=== PATIENT | male | born 1935 | race Caucasian/White ===

== ENCOUNTER 2017-01-02 11:33 | Inpatient (IN) | payer OTHER, MEDICARE ==
[2017-01-02] VITALS (13 sets, daily range): BP systolic 127–200; BP diastolic 74–104; PULSE 65–96; RESP 16–18; TEMP 97.9–98.6; O2SAT 93–99
[~2017-01-02 11:33] MED LIST: 1-ME1LIQ PO; ASPI325T PO; ATEN100T7 PO; KCL10C PO; NITR0.4S SL; PLAV75TA PO; PROT40TA PO; ROSU40 PO
--- NOTE | 2017-01-02 11:54 | PD ---
HPI Chief Complaint: Chest Pain Time Seen by Provider: 11:45 Travel History International Travel<30 days: No Contact w/Intl Traveler<30days: No Traveled to known affect area: No History of Present Illness HPI 81-year-old male complaining of chest pain or shortness of breath. Patient states that he has intermittent chest pain or shortness breath for the past 3 weeks. Patient states that the chest pain or shortness breath occasionally associated with exertion. Patient states that the chest pain usually got complete relief with nitroglycerin sublingually. Last chest pain episode was last night. Patient has history of CAD status post 2 stents placement. Last stent placement was [address] Mena. Patient has history of severe aortic stenosis. Patient status post aortic valve replacement last year at [facility]. Patient is on Plavix and aspirin 325 mg at night. Patient has not taken Plavix or aspirin today. Patient has history hypertension, hyperlipidemia. Patient denies history diabetes. Patient quit smoking years ago. Patient has family history of heart disease. Patient denies any chest pain now. PFSH Past Medical History Arthritis: Yes Cancer: Yes (PROSTATE) Cardiovascular Problems: Yes High Cholesterol: Yes Chemotherapy: No Chest Pain: Yes Congestive Heart Failure: Yes Diabetes: No Diminished Hearing: Yes (BILAT HEARING AIDS) Endocrine: No GERD: Yes Genitourinary: No Hypertension: Yes Immune Disorder: No Musculoskeletal: Yes Neurologic: No Psychiatric: No Respiratory: Yes (SLEEP APNEA) Radiation Therapy: No ?: Not Past Surgical History Abdominal Surgery: Yes (HERNIA REPAIR X 2, APPENDECTOMY) Appendectomy: Yes (194) Body Medical Devices: PIN IN LEFT THUMB Cardiac Surgery: Yes (CARDIAC STENTS) Coronary Artery Bypass Graft: Yes (3 VESSEL AUGUST 2007) Genitourinary Surgery: Yes (PROSTATE 1998) Prostatectomy: Yes (1998) Social History Alcohol Use: Yes (2 GLASSES WINE DAILY) Tobacco Use: No (QUIT 1973) Substance Use: No Allergies-Medications (Allergen,Severity, Reaction): Coded Allergies: Enalapril (Verified Allergy, Severe, 01/02/17) Niacin (Verified Allergy, Severe, 01/02/17) Sulfa (Verified Allergy, Severe, "FLUSHING", 01/02/17) Reported Meds & Prescriptions Reported Meds & Active Scripts Active Reported Glucosamine-Chondroitin 500-400 Mg Tab 1 Tab PO BID Potassium Chloride ER (Potassium Chloride) 10 Meq Cap 10 Meq PO DIRECTED Tylenol (Acetaminophen) 325 Mg Tab 500 Mg PO TID PRN Rosuvastatin (Rosuvastatin Calcium) 40 Mg Tab 40 Mg PO DAILY Prednisolone Liq (Prednisolone) 15 Mg/5 Ml Soln 2.5 Mg PO BID Pantoprazole (Pantoprazole Sodium) 40 Mg Tab 40 Mg PO DAILY Fish Oil 1200 mg ([place]-3 Fatty Acids) 1 Cap Cap 1 Tab PO DAILY Clopidogrel (Clopidogrel Bisulfate) 75 Mg Tab 75 Mg PO DAILY Atenolol 50 Mg Tab 50 Mg PO DAILY Aspirin 325 Mg Tab 325 Mg PO HS Amlodipine (Amlodipine Besylate) 10 Mg Tab 10 Mg PO DAILY Review of Systems General / Constitutional: No: Fever Eyes: No: Visual changes HENT: No: Headaches Cardiovascular: Positive: Chest Pain or Discomfort Respiratory: No: Shortness of Breath Gastrointestinal: No: Abdominal Pain Genitourinary: No: Dysuria Musculoskeletal: No: Pain Skin: No Rash Neurologic: No: Weakness Psychiatric: No: Depression Endocrine: No: Polydipsia Hematologic/Lymphatic: No: Easy Bruising Physical Exam Narrative GENERAL: Well-nourished, well-developed patient. SKIN: Focused skin assessment warm/dry. HEAD: Normocephalic. EYES: No scleral icterus. No injection or drainage. NECK: Supple, trachea midline. No JVD or lymphadenopathy. CARDIOVASCULAR: Regular rate and rhythm without murmurs, gallops, or rubs. RESPIRATORY: Breath sounds equal bilaterally. No accessory muscle use. GASTROINTESTINAL: Abdomen soft, non-tender, nondistended. MUSCULOSKELETAL: No cyanosis, or edema. BACK: Nontender without obvious deformity. No CVA tenderness. Neurologic exam normal. Data Data Last Documented VS Vital Signs Date Time Temp Pulse Resp B/P Pulse Ox O2 Delivery O2 Flow Rate FiO2 01/02/17 13:34 70 18 154/78 97 Room Air 01/02/17 11:45 98.6 Orders Electrocardiogram (01/02/17 11:46) Complete Blood Count With Diff (01/02/17 11:46) Comprehensive Metabolic Panel (01/02/17 11:46) Creatine Kinase (Cpk) (01/02/17 11:46) Troponin I (01/02/17 11:46) B-Type Natriuretic Peptide (01/02/17 11:46) Prothrombin Time / Inr (Pt) (01/02/17 11:46) Act Partial Throm Time (Ptt) (01/02/17 11:46) Chest, Single Ap (01/02/17 11:46) Iv Access Insert/Monitor (01/02/17 11:46) Ecg Monitoring (01/02/17 11:46) Oximetry (01/02/17 11:46) Sodium Chlor 0.9% 1000 Ml Inj (Ns 1000 M (01/02/17 12:00) Labs Laboratory Tests Test 01/02/17 11:50 White Blood Count 8.0 TH/MM3 Red Blood Count 4.86 MIL/MM3 Hemoglobin 14.2 GM/DL Hematocrit 43.4 % Mean Corpuscular Volume 89.2 FL Mean Corpuscular Hemoglobin 29.3 PG Mean Corpuscular Hemoglobin 32.8 % Concent Red Cell Distribution Width 14.6 % Platelet Count 180 TH/MM3 Mean Platelet Volume 7.5 FL Neutrophils (%) (Auto) 73.2 % Lymphocytes (%) (Auto) 18.9 % Monocytes (%) (Auto) 7.0 % Eosinophils (%) (Auto) 0.4 % Basophils (%) (Auto) 0.5 % Neutrophils # (Auto) 5.9 TH/MM3 Lymphocytes # (Auto) 1.5 TH/MM3 Monocytes # (Auto) 0.6 TH/MM3 Eosinophils # (Auto) 0.0 TH/MM3 Basophils # (Auto) 0.0 TH/MM3 CBC Comment DIFF FINAL Differential Comment Prothrombin Time 11.2 SEC Prothromb Time International 1.0 RATIO Ratio Activated Partial 26.7 SEC Thromboplast Time Sodium Level 139 MEQ/L Potassium Level 4.4 MEQ/L Chloride Level 104 MEQ/L Carbon Dioxide Level 27.6 MEQ/L Anion Gap 7 MEQ/L Blood Urea Nitrogen 26 MG/DL Creatinine 1.20 MG/DL Estimat Glomerular Filtration 58 ML/MIN Rate Random Glucose 99 MG/DL Calcium Level 9.1 MG/DL Total Bilirubin 0.6 MG/DL Aspartate Amino Transf 15 U/L (AST/SGOT) Alanine Aminotransferase 30 U/L (ALT/SGPT) Alkaline Phosphatase 53 U/L Total Creatine Kinase 32 U/L Troponin I 0.03 NG/ML B-Type Natriuretic Peptide 1368 PG/ML Total Protein 8.2 GM/DL Albumin 4.1 GM/DL MDM Medical Decision Making Medical Screen Exam Complete: Yes Emergency Medical Condition: Yes Interpretation(s) EKG shows sinus rhythm with sinus arrhythmia. Left bundle-branch block. The left bundle-branch block compared to EKG done on February 04, 2015 is new. Chest X-Ray 01/02/17 1146 Signed Impressions: Service Date/Time: , January 02, 2017 11:50 - CONCLUSION: No acute cardiopulmonary abnormality is identified. There is mild atelectasis at the lung bases. Jona Flores MD 1319 p.m. CBC within normal limit. CMP within normal limit. BUN 26. GFR 58. Cardiac enzymes are normal. BNP 1368. Differential Diagnosis Differential diagnosis including angina, MD, PE, pneumothorax. Narrative Course 81-year-old male with intermittent chest pain and shortness of breath. History of CAD status post stents placement and aortic valve replacement. Patient's asymptomatic for CHF although BNP is elevated. I spoke with Dr. Menon, mortgage originator on-call. Advised [facility] admission, continue with Plavix and aspirin and cardiology consultation. Patient has new left bundle-branch block on EKG compared to February 04, 2015. Diagnosis Primary Impression: Chest pain Qualified Code: R07.9 - Chest pain, unspecified type Additional Impression: Dyspnea Qualified Code: R06.02 - Shortness of breath Wm Thompson MD Jan 02, 2017 11:54
[2017-01-02 11:58] LABS: AUTOMATED NEUTROPHIL # 5.9 TH/MM3 (1.8-7.7); BASOPHIL % 0.5 % (0.0-2.0); EOSINOPHIL % 0.4 % (0.0-4.0); HEMATOCRIT 43.4 % (39.0-51.0); HEMO FLAGS DIFF FINAL; LYMPH % 18.9 % (9.0-44.0); LYMPHOCYTE # 1.5 TH/MM3 (1.0-4.8); MEAN CELL VOLUME 89.2 FL (80.0-100.0); MEAN CORPUSCULAR HEMOGLOBIN 29.3 PG (27.0-34.0); MEAN CORPUSCULAR HGB CONC 32.8 % (32.0-36.0); NEUT % 73.2 % (16.0-70.0); PLATELET COUNT 180 TH/MM3 (150-450); RED BLOOD COUNT 4.86 MIL/MM3 (4.50-5.90); RED CELL DISTRIBUTION WIDTH 14.6 % (11.6-17.2)
[2017-01-02] MEDS ORDERED: FISH1200 PO (12:00)
[2017-01-02] MEDS ORDERED: ASPI325T PO (12:00)
[2017-01-02] MEDS ORDERED: AMLO10TA2 PO (12:00)
[2017-01-02] MEDS ORDERED: CLOP75TA PO (12:00)
[2017-01-02] MEDS ORDERED: ATEN50TA PO (12:00)
[2017-01-02] MEDS ORDERED: PANT40TA3 PO (12:00)
[2017-01-02] MEDS ORDERED: SODIUM CHLOR 0.9% 1000 ML INJ 1,000 ML IV SCH (12:00)
[2017-01-02 12:12] LABS: CHLORIDE 104 MEQ/L (98-107); POTASSIUM 4.4 MEQ/L (3.5-5.1); SODIUM (NA) 139 MEQ/L (136-145)
[2017-01-02 12:16] LABS: ANION GAP 7 MEQ/L (5-15); APTT (PATIENT) 26.7 SEC (24.3-30.1); BICARBONATE 27.6 MEQ/L (21.0-32.0); BLOOD UREA NITROGEN 26 MG/DL (7-18); PROTHROMBIN TIME - PATIENT 11.2 SEC (9.8-11.6)
[2017-01-02] MEDS ORDERED: TYLE325T PO (12:16)
[2017-01-02] MEDS ORDERED: ROSU1TAB10 PO (12:16)
[2017-01-02] MEDS ORDERED: PRED15UDC PO (12:16)
[2017-01-02] MEDS ORDERED: GLUC500T4 PO (12:16)
[2017-01-02] MEDS ORDERED: POTA10CA PO (12:16)
[2017-01-02 12:19] LABS: ALT (GPT) 30 U/L (12-78); AST (GOT) 15 U/L (15-37); GLOMERULAR FILTRATION RATE 58 ML/MIN (>89)
[2017-01-02 12:21] LABS: TOTAL BILIRUBIN ADULT 0.6 MG/DL (0.2-1.0)
[2017-01-02 12:22] LABS: ALKALINE PHOSPHATASE 53 U/L (45-117); CREATINE KINASE 32 U/L (39-308)
--- NOTE | 2017-01-02 12:24 | RADRPT ---
EXAM DATE/TIME: 01/02/2017 11:50 [facility] COMPARISON: CHEST SINGLE AP, September 20, 2014, 10:22. INDICATIONS : Chest pain, short of breath MEDICAL HISTORY : Cardiovascular disease. SURGICAL HISTORY : Coronary artery stent. median sternotomy ENCOUNTER: Initial ACUITY: 1 day PAIN SCORE: 1/10 LOCATION: Bilateral chest FINDINGS: Portable AP view of the chest demonstrates a normal-sized cardiac silhouette with calcification of th e aorta this patient post median sternotomy and CABG. Lungs are underinflated with atelectasis at the bases. No effusion, consolidation, or pneumothorax is visualized. Bones demonstrate no acute finding . CONCLUSION: No acute cardiopulmonary abnormality is identified. There is mild atelectasis at the lung bases. Jona Flores MD on January 02, 2017 at 12:15 Board Certified Radiologist. This report was verified electronically.
--- NOTE | 2017-01-02 14:20 | HHI.HP ---
[facility] Drea Bowman Do, MD Admission Diagnosis chest pain. Dyspnea. Diagnoses: (1) Unstable angina Diagnosis: Principal (2) Dyspnea Diagnosis: Principal (3) Elevated brain natriuretic peptide (BNP) level Diagnosis: Principal (4) (aortic stenosis) Diagnosis: Secondary (5) Coronary artery disease Diagnosis: Secondary Chief Complaint: Chest pain, shortness of breath Travel History International Travel<30 Days: No Contact w/Intl Traveler <30 Da: No Traveled to Known Affected Are: No History of Present Illness Written by Duran Weber, acting as scribe for Dr. Alberto on 01/02/17 at 15:34. 81 year-old male with known history of hypertension, severe coronary artery disease, history of severe aortic stenosis status post aortic valve replacement, obstructive sleep apnea who presented to hospital because of chest pain, shortness of breath. Patient indicates that her last 2 weeks he has been having episodes of chest discomfort located in the left side of his chest radiating to his left arm. The discomfort can happen when he is exerting himself and or at rest, lying down, while he is asleep. Pain is severe and he takes nitroglycerin with complete resolution of his pain. Patient does have a rather significant history of coronary artery disease with coronary bypass surgery, multiple cardiac catheterizations with stenting of the left main, circumflex. Patient's radiography technician Dr. Mena is out of town. The indicates that they called the radiography technician office a week ago and was told to go to the hospital for evaluation, however the patient did not want to go at that time. However because the patient's pain has not improved and he has been getting more short of breath whenever he exerts himself he decided come to the hospital for evaluation. Patient indicates that he does have obstructive sleep apnea however he does not wear his mask because it is uncomfortable. He thinks that this could have something do with his symptoms that he is experiencing. Patient indicates that he is having left-sided chest pain radiating to his left arm and shoulder, denies any nausea, vomiting, diaphoresis. Does have associated shortness of breath and dyspnea. Denies any lightheadedness or dizziness. Review of Systems Constitutional: DENIES: Diaphoretic episodes, Fatigue, Fever, Weight gain, Weight loss, Chills, Dizziness, Change in appetite, Night Sweats Eyes: DENIES: Blurred vision, Diplopia, Eye inflammation, Eye pain, Vision loss , Double Vision Ears, nose, mouth, throat: DENIES: Nasal discharge, Throat pain, Ear Pain, Running Nose, Sinus Pain Respiratory: COMPLAINS OF: Shortness of breath, DENIES: Apneas, Cough, Snoring , Wheezing, Hemoptysis, Sputum production Cardiovascular: COMPLAINS OF: Chest pain, Dyspnea on Exertion, DENIES: Palpitations, Syncope, Lower Extremity Edema, Orthopnea Gastrointestinal: DENIES: Abdominal pain, Black stools, Bloody stools, Constipation, Diarrhea, Nausea, Vomiting, Difficulty Swallowing, Anorexia Neurologic: DENIES: Abnormal gait, Headache, Localized weakness, Paresthesias, Seizures, Speech Problems, Tremor, Poor Balance Past Family Social History Past Medical History Hypertension Hyperlipidemia Coronary artery disease History of Myocardial infarction severe aortic stenosis History of tobacco use History of prostate cancer Obstructive sleep apnea Past Surgical History Cardiac cath with stenting of left main and circumflex Coronary bypass surgery Bilateral inguinal hernia repair Appendectomy Prostatectomy Cataract surgery Aortic valve replacement, bovine Reported Medications Reported Meds & Active Scripts Active Reported Glucosamine-Chondroitin 500-400 Mg Tab 1 Tab PO BID Potassium Chloride ER (Potassium Chloride) 10 Meq Cap 10 Meq PO DIRECTED Tylenol (Acetaminophen) 325 Mg Tab 500 Mg PO TID PRN Rosuvastatin (Rosuvastatin Calcium) 40 Mg Tab 40 Mg PO DAILY Prednisolone Liq (Prednisolone) 15 Mg/5 Ml Soln 2.5 Mg PO BID Pantoprazole (Pantoprazole Sodium) 40 Mg Tab 40 Mg PO DAILY Fish Oil 1200 mg ([place]-3 Fatty Acids) 1 Cap Cap 1 Tab PO DAILY Clopidogrel (Clopidogrel Bisulfate) 75 Mg Tab 75 Mg PO DAILY Atenolol 50 Mg Tab 50 Mg PO DAILY Aspirin 325 Mg Tab 325 Mg PO HS Amlodipine (Amlodipine Besylate) 10 Mg Tab 10 Mg PO DAILY Allergies: Coded Allergies: Enalapril (Verified Allergy, Severe, 01/02/17) Niacin (Verified Allergy, Severe, 01/02/17) Sulfa (Verified Allergy, Severe, "FLUSHING", 01/02/17) Family History Reviewed is significant for heart disease, cancer, stroke Social History Patient quit smoking cigarettes approximately 30 years ago, prior to that he smoked 2 pack of cigarettes a day since he was a teenager. He does drink 2 glasses of wine daily. Denies any illicit drugs Physical Exam Vital Signs Vital Signs Date Time Temp Pulse Resp B/P Pulse Ox O2 Delivery O2 Flow Rate FiO2 01/02/17 13:34 70 18 154/78 97 Room Air 01/02/17 13:06 70 99 Room Air 01/02/17 12:25 65 16 154/78 93 Room Air 01/02/17 11:56 72 18 164/84 99 Room Air 01/02/17 11:47 72 18 99 Room Air 01/02/17 11:45 98.6 72 18 200/104 99 Physical Exam GENERAL: Well-developed, well-nourished, in no acute distress. alert and orientated HEENT: Head is normocephalic without any lesions or masses noted. Facial features are symmetric. Eyes: Pupils equal round reactive to light. Extraocular muscles are intact. Conjunctivae were clear. Oropharyngeal: Pharynx without any erythema edema. Tongue is midline without deviation. Buccal mucosa is moist without any masses or lesions NECK: Supple without any masses. Trachea midline no deviation. No JVD, no bruits are appreciated CARDIAC: Regular rhythm, regular rate. S1/S2 are heard. 2/6 midsystolic murmur , no gallops or rubs. LUNGS: Clear to auscultation bilaterally. No wheeze, rhonchi or rales. No use of accessory muscles on inspiration or expiration. ABDOMEN: Soft, nontender. Nondistended. Bowel sounds heard in all 4 quadrants. No organomegaly or masses. Negative rebound, negative guarding EXTREMITIES: No edema, pulses are equal bilaterally. No cyanosis or clubbing NEUROLOGY: Mood and affect appear appropriate. Cranial nerves II through XII grossly intact. Muscle strength 5/5 in upper and lower extremities bilaterally. Deep tendon reflexes are 2+ in upper and lower extremities bilaterally. Laboratory Laboratory Tests Test 01/02/17 11:50 White Blood Count 8.0 Red Blood Count 4.86 Hemoglobin 14.2 Hematocrit 43.4 Mean Corpuscular Volume 89.2 Mean Corpuscular Hemoglobin 29.3 Mean Corpuscular Hemoglobin 32.8 Concent Red Cell Distribution Width 14.6 Platelet Count 180 Mean Platelet Volume 7.5 Neutrophils (%) (Auto) 73.2 Lymphocytes (%) (Auto) 18.9 Monocytes (%) (Auto) 7.0 Eosinophils (%) (Auto) 0.4 Basophils (%) (Auto) 0.5 Neutrophils # (Auto) 5.9 Lymphocytes # (Auto) 1.5 Monocytes # (Auto) 0.6 Eosinophils # (Auto) 0.0 Basophils # (Auto) 0.0 CBC Comment DIFF FINAL Differential Comment Prothrombin Time 11.2 Prothromb Time International 1.0 Ratio Activated Partial 26.7 Thromboplast Time Sodium Level 139 Potassium Level 4.4 Chloride Level 104 Carbon Dioxide Level 27.6 Anion Gap 7 Blood Urea Nitrogen 26 Creatinine 1.20 Estimat Glomerular Filtration 58 Rate Random Glucose 99 Calcium Level 9.1 Total Bilirubin 0.6 Aspartate Amino Transf 15 (AST/SGOT) Alanine Aminotransferase 30 (ALT/SGPT) Alkaline Phosphatase 53 Total Creatine Kinase 32 Troponin I 0.03 B-Type Natriuretic Peptide 1368 Total Protein 8.2 Albumin 4.1 Result Diagram: 01/02/17 1150 01/02/17 1150 Imaging Last Impressions Chest X-Ray 01/02/17 1146 Signed Impressions: Service Date/Time: December 11:50 - CONCLUSION: No acute cardiopulmonary abnormality is identified. There is mild atelectasis at the lung bases. Jona Flores MD Assessment and Plan Problem List: (1) Unstable angina ICD Code: I20.0 Status: Acute Plan: Patient with significant risk factors include severe coronary artery disease, age, male, hypertension, hyperlipidemia, Continue aspirin, beta razia, Norvasc, Plavix, statin. Start Nitropaste Consult radiography technician for recommendations and possible cardiac catheterization Discussed with radiography technician who indicated patient to be anticoagulated with heparin (2) Elevated brain natriuretic peptide (BNP) level ICD Code: R79.89 Status: Acute Plan: Could be secondary to aortic stenosis, however patient does have dyspnea on exertion, however lungs are clear, no lower extremity edema, chest x-rays without any signs of congestion Fluid restriction Strict input and output (3) Hypertension ICD Code: I10 Status: Chronic Plan: Blood pressure accelerated on presentation Resume home medications Clonidine/Vasotec as needed (4) Hyperlipidemia ICD Code: E78.5 Status: Chronic Plan: Resume statin Check lipid panel Assessment and Plan DVT prevention Sequential compression devices Heparin This note was transcribed by dari Weber. I, Dr. Jl Lloyd personally performed the history, physical exam, and medical decision making; and confirmed the accuracy of the information in the transcribed note. Authenticated by Dr. Jl Lloyd on 01/02/17 at 16:19. Problem Qualifiers (1) Dyspnea: Qualified Code: R06.02 - Shortness of breath (2) Coronary artery disease: Qualified Code: I25.119 - Coronary artery disease with angina pectoris, unspecified vessel or lesion type, unspecified whether [place] or transplanted heart Duran Weber Jan 02, 2017 14:20 Jl Mcclain MD Jan 02, 2017 16:19
[2017-01-02] MEDS ORDERED: ALPRAZolam 0.25 MG TAB PO PRN (16:15)
[2017-01-02] MEDS ORDERED: ONDANSETRON HCL 4 MG/2 ML VIAL IV PRN (16:15)
[2017-01-02] MEDS ORDERED: ENOXAPARIN SODIUM 40 MG/0.4 ML SYRINGE SQ SCH (16:15)
[2017-01-02] MEDS ORDERED: MORPHINE SULFATE 8 MG/ML INJ IV PUSH PRN (16:15)
[2017-01-02] MEDS ORDERED: SODIUM CHLORIDE 0.9% FLUSH 10 ML FLUSH IV FLUSH PRN (16:15)
[2017-01-02] MEDS ORDERED: ENALAPRILAT 1.25 MG/ML VIAL IV PUSH PRN (16:45)
[2017-01-02] MEDS ORDERED: cloNIDine HCL 0.1 MG TAB PO PRN (16:45)
[2017-01-02] MEDS ORDERED: HEPARIN SODIUM - IV 10,000 UNITS/10 ML VIAL IV ONE (16:45)
[2017-01-02] MEDS ORDERED: HEPARIN-D5W INJ 250 ML IV SCH (16:45)
[2017-01-02 17:44] LABS: HEMATOCRIT 42.3 % (39.0-51.0); MEAN CORPUSCULAR HEMOGLOBIN 29.2 PG (27.0-34.0); MEAN CORPUSCULAR HGB CONC 32.5 % (32.0-36.0); PLATELET COUNT 161 TH/MM3 (150-450); RED CELL DISTRIBUTION WIDTH 14.9 % (11.6-17.2); REVIEW FLAG FINAL; WHITE BLOOD COUNT 7.9 TH/MM3 (4.0-11.0)
--- NOTE | 2017-01-02 19:00 | EKG ---
Date Performed: 01/02/2017 Time Performed: 11:39:13 PTAGE: 81 years EKG: Sinus rhythm WITH SINUS ARRHYTHMIA LEFT BUNDLE BRANCH BLOCK Compared to previous tracing, the patient has develop ed complete Right bundle branch block ABNORMAL ECG PREVIOUS TRACING : 02/04/2015 05.57 DOCTOR: Stephanie Nathan Interpretating Date/Time 01/02/2017 18:59:37
[2017-01-02] MEDS ORDERED: ACETAMINOPHEN 500 MG CPLT PO ONE (20:30)
[2017-01-02] MEDS: ASPIRIN 325 MG TAB PO SCH (21:15)
[2017-01-02] MEDS: SODIUM CHLORIDE 0.9% FLUSH 10 ML FLUSH IV FLUSH SCH (21:15)
[2017-01-02] MEDS ORDERED: HEPARIN SODIUM - IV 10,000 UNITS/10 ML VIAL IV PRN ×2 (22:45)
[2017-01-02 23:36] LABS: APTT (PATIENT) 41.4 SEC (24.3-30.1)
[2017-01-02 23:58] LABS: HDL CHOLESTEROL 35.3 MG/DL (40.0-60.0)
[2017-01-03] VITALS (27 sets, daily range): BP systolic 115–174; BP diastolic 65–81; PULSE 57–82; RESP 16–20; TEMP 98–98.8; O2SAT 93–96
[2017-01-03] MEDS: CLOPIDOGREL 75 MG TAB PO SCH (08:39)
[2017-01-03] MEDS: ATENOLOL 50 MG TAB PO SCH (08:39)
[2017-01-03] MEDS: PANTOPRAZOLE SOD 40 MG DELAYED RELEASE TAB PO SCH (08:39)
[2017-01-03] MEDS: ATORVASTATIN 80 MG TAB PO SCH (08:40)
[2017-01-03] MEDS: NITROGLYCERIN 2% OINT 1 GM PACKET TOP SCH (08:40)
[2017-01-03] MEDS: SODIUM CHLORIDE 0.9% FLUSH 10 ML FLUSH IV FLUSH SCH ×2 (08:40→22:10)
[2017-01-03] MEDS: ACETAMINOPHEN 325 MG TAB PO PRN ×2 (08:42→17:25)
[2017-01-03] MEDS ORDERED: HEPARIN-NS/PF INJ 500 ML ONE ×2 (11:47→12:51)
[2017-01-03] MEDS ORDERED: VERAPAMIL HCL 5 MG/2 ML VIAL ONE (11:52)
[2017-01-03] MEDS ORDERED: MIDAZOLAM HCL 2 MG/2 ML VIAL ONE (11:52)
[2017-01-03] MEDS ORDERED: HEPARIN SODIUM - IV 10,000 UNITS/10 ML VIAL ONE (11:52)
[2017-01-03] MEDS ORDERED: IOHEXOL 350 MG/ML 50 ML BTL (for Cath Lab) OTHER ONE (12:18)
[2017-01-03] MEDS ORDERED: IOHEXOL 350 MG/ML 100 ML BTL (for Cath Lab) OTHER ONE (12:18)
--- NOTE | 2017-01-03 12:36 | HHI.PR ---
Subjective Remarks Follow-up unstable angina 01/03/17-patient seen and examined ; he has just returned from [facility] without any stent placement. Case discussed with Dr Mike, Cardiology Objective Vitals Vital Signs Date Time Temp Pulse Resp B/P Pulse Ox O2 Delivery O2 Flow Rate FiO2 01/03/17 11:01 18 01/03/17 11:00 57 01/03/17 10:00 62 01/03/17 09:55 96 01/03/17 09:00 76 01/03/17 08:00 72 01/03/17 08:00 98.5 73 20 174/81 96 01/03/17 07:00 77 01/03/17 06:00 81 01/03/17 05:00 72 01/03/17 04:00 81 01/03/17 03:20 98.0 67 16 138/76 94 01/03/17 03:00 76 01/03/17 02:00 75 01/03/17 01:00 71 01/03/17 00:00 82 01/02/17 23:30 97.9 73 16 127/74 93 01/02/17 23:00 75 01/02/17 22:00 68 01/02/17 21:00 74 01/02/17 20:00 78 01/02/17 19:40 98.0 75 16 155/86 94 01/02/17 19:00 80 01/02/17 17:16 98.4 96 18 165/90 99 01/02/17 15:36 70 01/02/17 15:35 70 18 174/83 97 Room Air 01/02/17 13:34 70 18 154/78 97 Room Air 01/02/17 13:06 70 99 Room Air I/O 01/02/17 01/02/17 01/02/17 01/03/17 01/03/17 01/03/17 07:00 15:00 23:00 07:00 15:00 23:00 Intake Total 100 ml 348 ml Output Total 300 ml 1400 ml Balance -200 ml -1052 ml Intake Oral 100 ml 240 ml IV Total 108 ml Output Urine Total 300 ml 1400 ml # Voids 1 1 # Bowel Movements 0 Result Diagram: 01/02/17 1648 01/02/17 1150 Imaging Last Impressions Chest X-Ray 01/02/17 1146 Signed Impressions: Service Date/Time: December 11:50 - CONCLUSION: No acute cardiopulmonary abnormality is identified. There is mild atelectasis at the lung bases. Jona Flores MD Objective Remarks GENERAL: NAD SKIN: Warm and dry. HEAD: Normocephalic. EYES: No scleral icterus. No injection or drainage. NECK: Supple, trachea midline. No JVD or lymphadenopathy. CARDIOVASCULAR: Regular rate and rhythm without murmurs, gallops, or rubs. RESPIRATORY: Breath sounds equal bilaterally. No accessory muscle use. GASTROINTESTINAL: Abdomen soft, non-tender, nondistended. MUSCULOSKELETAL: No cyanosis, or edema. BACK: Nontender without obvious deformity. No CVA tenderness. A/P Problem List: (1) Unstable angina ICD Code: I20.0 Status: Acute (2) Elevated brain natriuretic peptide (BNP) level ICD Code: R79.89 Status: Acute (3) Hypertension ICD Code: I10 Status: Chronic (4) Hyperlipidemia ICD Code: E78.5 Status: Chronic Assessment and Plan 81-year-old man with Unstable angina Appreciate input from cardiology and plan for left heart catheterization Continue with aspirin, beta razia, Norvasc, Plavix, statin, Nitropaste, heparin drip Hypertension Currently on Norvasc, beta razia Hyperlipidemia Continue with statin DVT prophylaxis Heparin Elpidio Frances MD Jan 03, 2017 12:36
[2017-01-03] MEDS ORDERED: hydrALAZINE HCL 20 MG/ML VIAL ONE (13:17)
--- NOTE | 2017-01-03 13:39 | EKG ---
Date Performed: 01/02/2017 Time Performed: 22:13:02 PTAGE: 81 years EKG: Sinus rhythm with PVC(s) with PAC(s) Left bundle branch block Abnormal ECG Compared to prior tracing no significa nt change PREVIOUS TRACING 01/02/2017 17.46 DOCTOR: Micah Haas Interpretating Date/Time 01/03/2017 13:34:34
--- NOTE | 2017-01-03 13:39 | EKG ---
Date Performed: 01/02/2017 Time Performed: 17:46:28 PTAGE: 81 years EKG: Sinus arrhythmia Leftward axis Left bundle branch block Abnormal ECG Compared to prior trac ing no significant change PREVIOUS TRACING : 01/02/2017 11.39 DOCTOR: Micah Haas Interpretating Date/Time 01/03/2017 13:34:42
--- NOTE | 2017-01-03 13:40 | CATHPROC ---
[employer] HIS Report Study Information Study Number Admission Scheduled Start Study Start [id number] Jan 02 2017 1:55PM 01/03/2017 Jan 03 2017 9:49AM [place] [facility] Cardiac Catheterization Admit Source Facility Department Other [facility] Operations Manager Physician and Clinical Staff Initial Bdudy Holloway Bioinformatics Programmer Blue Mcmillan,BLAISE Other cathlab, cathlab Recorder Antonina Ramos,RT(R) TECH2 Scrub Ulices Zaldivar RCIS(BS) Procedures Performed Procedure Location (Site) Vessel Name Coronary Angiograms LCA Left Coronary Coronary Angiograms RCA Right Coronary Coronary Angiograms NORTH-LAD Left Coronary Wire insertion Radial (left) Radial Art. Equipment Time Doormaker Description Size Mfg Part Number Used/Scraped TRANSDUCER, TRUWAVE [id number] 09:54 Champion Windows * Used W/GELYCOCK *[id number]- INTRODUCER SET, 12:37 [employer] FR 5 SC-NT-U-SST Used MICROPUNCTURE, STIFFENED *[id number] *[id number] *[id number] WIRE, HYDROSTEER 150CM [id number] 12:33 DAIG/ST. YOA[employer] MEDICAL 150CM Used ANGLED GLIDE *[id number] 09:54 [employer] PACK, CCL CUSTOM * Used *[id number] BAND, RADIAL COMPRESSION TR [id number] 13:12 [employer] MEDICAL 29CM Used LARGE 29 *[id number] 09:54 [employer] MEDICAL SHEATH, FR5.5 PRELUDE 11CM FR 5 [id number] Used [id number] 09:54 [employer] MEDICAL WIRE, 3MMJ .035 180CM 180CM Used *[id number] 09:54 NAMIC MANIFOLD, 4 PORT * Used *[id number] 09:54 [employer] OMNIPAQUE, 350 MG, 150ML 150ML [id number] Used [id number] 09:54 [employer] BLANKET,WARM AIR CCL * Used *[id number] 12:37 TERUMO MEDICAL SHEATH, FR5 TERUMO (10CM) FR 5 [id number] Used Equipment Model, Serial, Lot Number and Expiration Data Description Model Number Serial Number Lot Number Expiration Date INTRODUCER SET, [id number] 11-09-2019 MICROPUNCTURE, STIFFENED WIRE, HYDROSTEER 150CM [id number] 08-28-2019 BURT VELEZ History: Current Medications Medication Dosage/Unit Route Frequency Last Date/Time Taken Statins (any) PLAVIX Beta Karlos History: Allergies Allergy Reaction Enalapril Niacin Sulfa "FLUSHING" History: Risk Factors Hypertension Dyslipidemia Previous ID Yes Yes Yes Prior Valve Prior PCI Prior PCIDate Prior CABG Surgery Yes Yes 02/03/2015 Yes History: Symptoms/Diagnosis Selection Items Chest pain History: Other Current Smoker Method Quit Packs a Day Years Used Pack Years No Cigarettes 40 Years Ago 1 20 20 Labs Hgb (g/dl) Hct (%) WBC (l/cumm) Platelets (thousands) 11.60-17.00 35.00-51.00 4.00-11.00 150.00-450.00 13.7 42.3 7.9 161 Glucose (mg/dl) BUN (mg/dl) Creatinine (mg/dl) BUN:Creatinine (1:x) 74.00-106.00 7.00-18.00 0.50-1.30 10.00-20.00 99 26 1.2 21.7 Na (meq/l) K (meq/l) 136.00-145.00 3.50-5.10 138 4.4 INR (PTT:PT) 0.90-1.10 1 Troponin I (ng/ml) CPK (u/l) CPK-MB (ng/ML) 0.02-0.05 26.00-308.00 0.50-3.60 0.05 25 Not Drawn Medication Medication Total Dose (Bolus/Oral) Medication Total Dosage/Unit 1% XYLOCAINE 40 mL FENTANYL 25 mcg HYDRALAZINE 10 mg RADIAL COCKTAIL 5 mL (Bolus) VERSED 0.5 mg Medications (Bolus/Oral) Medication Time Given Dosage/Unit Administered By Reason VERSED 01/03/2017 12:00:41 PM 0.5 mg Blue Mcmillan As per physicians verb al order 0.5 mg VERSED given pre op by Blue Mcmillan RN in Left Antecubital via Peripheral IV. Ordered by Buddy Tejeda. Reason: As per physicians verbal order. FENTANYL 01/03/2017 12:01:24 PM 25 mcg Blue Mcmillan As per physicians ravi bal order 25 mcg FENTANYL given pre op by Blue Mcmillan RN in Left Antecubital via Peripheral IV. Ordered by Buddy Page. Reason: As per physicians verbal order. 1% XYLOCAINE 01/03/2017 12:19:01 PM 20 mL Buddy Mike 20 mL 1% XYLOCAINE given in lab by Buddy Mike in Left Radial via Subcutaneous. Ordered by Buddy Reno. Ntg 200mcg Verapamil 2.5mg Heparin RADIAL COCKTAIL 01/03/2017 12:23:16 PM 5 mL (Bolus) Buddy Mike 3000U 5 mL (Bolus) RADIAL COCKTAIL given in lab by Buddy Mike via Radial. Using [Solution Name]. Ord ered by Buddy Mike. Reason: Ntg 200mcg Verapamil 2.5mg Heparin 3000U. 1% XYLOCAINE 01/03/2017 12:37:18 PM 20 mL Buddy Mike 20 mL 1% XYLOCAINE given in lab by Buddy Mike in Right Groin via Subcutaneous. Ordered by Buddy Reno. HYDRALAZINE 01/03/2017 1:17:00 PM 10 mg Blue Mcmillan 10 mg HYDRALAZINE given in lab by Blue Mcmillan, RN in Left Antecubital via Peripheral IV. Ordered by Buddy Mike. Medication (Drip) Medication Time Given Dosage/Unit Concentration/Unit Diluent (ml) Solution IV Solutions 01/03/2017 12:00:29 PM 0 mL (IV) 500 NaCl .9 IV Solutions given pre op by joey cook in Left Antecubital via Peripheral IV. Pump/Drip Flow = 20 ml/hr using NaCl .9. Ordered by Buddy Mike. Initial Case Assessment Cardiovascular HR Rhythm NIBP Chest Pain 88 lbbb 173/93 0 Edema Present Skin color Skin None Normal Warm Dry Circulatory - Right Pulses Dorsalis Pedis Femoral 2 2 Scale (0,1,2,3,4,d) Circulatory - Left Pulses Dorsalis Pedis Femoral 2 2 Scale (0,1,2,3,4,d) Neurological State Oriented to time-place- Alert Moves all extremities person Respiration - General Respiration Rate SpO2 (%) (B/min) 12 94 Final Case Assessment Cardiovascular HR Rhythm NIBP Chest Pain 67 lbbb 139/58 0 Edema Present Skin color Skin None Normal Warm Dry Circulatory - Right Pulses Dorsalis Pedis Femoral 2 2 Scale (0,1,2,3,4,d) Circulatory - Left Pulses Dorsalis Pedis Femoral 2 2 Scale (0,1,2,3,4,d) Neurological State Oriented to time-place- Alert Moves all extremities person Respiration - General Respiration Rate SpO2 (%) (B/min) 18 98 Chronological Log Time Study Chronological Log 11:35:11 Patient arrived via Bed. 11:41:17 Patient Name, D.O.B, / Armband Verified By R.N. 11:41:18 Consent signed by the physician and the patient and verified by the Airport Operations Manager staff. 11:41:18 Pre-op and post- op instructions given; patient acknowledges understanding of instructions. Vitals capture started with the following parameters, Patient=Adult, Interval=5 min, Initial Pr uxwlrq=879 mmHg, 11:41:23 Deflation Rate=5 mmHg 11:42:49 HR=69 bpm, DKLW=205/88 mmhg, SpO2=98 %, Resp=15 B/min, Pain=0, Ewa=10, Sol=2 11:47:07 HR=72 bpm, NRQI=220/87 mmhg, SpO2=96.0 %, Resp=12 B/min, Pain=0, Ewa=10, Sol=2 11:49:04 Reference ECG taken 11:50:00 Skin Breakdown-none per patient 11:52:08 HR=74 bpm, AOXU=208/93 mmhg, SpO2=93.0 %, Resp=13 B/min, Pain=0, Ewa=10, Sol=2 Assessment: Initial Case, HR=88 BPM, Rhythm=lbbb, ZQYZ=565/93 mmhg, Chest Pain=0, Edema=None, Color=Normal, Skin = Warm, Dry Right Pulses: Ernst Ped=2, Femoral=2 11:52:17 Left Pulses: Ernst Ped=2, Femoral=2, Radial=3 Neurological: State=Alert, Ox3, ROBLES Respiration: Resp=12 B/min, SpO2=94 % 11:56:31 Pressure channel 1 zeroed. 11:57:05 HR=69 bpm, UYOD=678/94 mmhg, SpO2=92.0 %, Resp=14 B/min, Pain=0, Ewa=10, Sol=2 11:58:11 Dov Prominences Protected 11:58:18 MD arrived. 11:59:23 A # 20 IV was noted in the Fem Vein (left). Grade = 0 12:00:09 History and physical on the chart or being dictated. 12:00:14 Right Radial and groin(s) prepped with 2% chlorhexidine, and with a 3 min. waiting time. IV Solutions given pre op by joey cook in Left Antecubital via Peripheral IV. Pump/Drip Flow = 20 ml/hr using 12:00:29 NaCl .9. Ordered by Buddy Mike. 0.5 mg VERSED given pre op by Blue Mcmillan RN in Left Antecubital via Peripheral IV. Ordered by Buddy Mike. 12:00:41 Reason: As per physicians verbal order. 25 mcg FENTANYL given pre op by Blue Mcmillan RN in Left Antecubital via Peripheral IV. Ordere d by Buddy Mike. 12:01:24 Reason: As per physicians verbal order. 12:02:09 HR=63 bpm, SZRJ=852/82 mmhg, SpO2=95 %, Resp=18 B/min, Pain=0, Ewa=10, Sol=2 12:07:06 HR=69 bpm, TBXM=129/89 mmhg, SpO2=94.0 %, Resp=11 B/min, Pain=0, Ewa=10, Sol=2 12:12:05 HR=67 bpm, UJCX=515/88 mmhg, SpO2=94.0 %, Resp=19 B/min, Pain=0, Ewa=10, Sol=2 12:17:04 HR=70 bpm, OKBY=482/91 mmhg, SpO2=96.0 %, Resp=21 B/min, Pain=0, Ewa=10, Sol=2 Time Out. Correct patient, correct procedure,correct physician, ,power injector not loaded with contrast with surgical 12:17:54 team present. Time Out Concurred by MD, individual staff and LOADING CHECKER in procedure 12:18:58 Case Start 12:19:01 20 mL 1% XYLOCAINE given in lab by Buddy Mike in Left Radial via Subcutaneous. Order ed by Buddy Mike. 12:22:05 HR=69 bpm, AATQ=918/88 mmhg, SpO2=96.0 %, Resp=15 B/min, Pain=0, Ewa=10, Sol=2 12:22:17 Access site was Radial Artery. 12:22:48 A SHEATH, FR5.5 PRELUDE 11CM FR 5 was advanced into the Radial (left) using the Percutaneou s technique. 5 mL (Bolus) RADIAL COCKTAIL given in lab by Buddy Mike via Radial. Using [Solution Name ]. Ordered by 12:23:16 Buddy Mike. Reason: Ntg 200mcg Verapamil 2.5mg Heparin 3000U. A JR 4.0 INFINITI CATHETER FR 5 was advanced over a wire. OMNIPAQUE, 350 MG, 150ML 150ML was us ed for 12:27:04 injections. 12:27:08 HR=71 bpm, TYEC=329/85 mmhg, SpO2=95.0 %, Resp=15 B/min, Pain=0, Ewa=10, Sol=2 Recorded Pressure: Ao, HR=76, Condition=Condition 1 12:28:32 (Aorta) Ao 144/67/98 12:28:49 The NORTH-LAD was injected and visualized at various angles. OMNIPAQUE, 350 MG, 150ML 150ML used. 12:32:05 HR=69 bpm, PCQV=283/85 mmhg, SpO2=95.0 %, Resp=13 B/min, Pain=0, Ewa=10, Sol=2 12:33:32 A WIRE, HYDROSTEER 150CM ANGLED GLIDE 150CM was inserted via Radial (left). 12:34:06 Wire removed 12:36:34 Catheter was removed 12:37:10 HR=72 bpm, THJX=065/78 mmhg, SpO2=96.0 %, Resp=13 B/min, Pain=0, Ewa=10, Sol=2 12:37:18 20 mL 1% XYLOCAINE given in lab by Buddy Mike in Right Groin via Subcutaneous. Order ed by Buddy Mike. 12:37:45 Access site was Right Femoral Artery. obtained with a micropuncture kit 12:38:01 A SHEATH, FR5 TERUMO (10CM) FR 5 was advanced into the Fem Art (right) using the Percutaneo us technique. 12:42:09 HR=66 bpm, PWLX=561/90 mmhg, SpO2=97.0 %, Resp=13 B/min, Pain=0, Ewa=10, Sol=2 A JR 4.0 INFINITI CATHETER FR 5 was advanced over a wire. OMNIPAQUE, 350 MG, 150ML 150ML was us ed for 12:43:38 injections. 12:47:10 HR=67 bpm, NCXK=864/82 mmhg, SpO2=96.0 %, Resp=12 B/min, Pain=0, Ewa=10, Sol=2 12:48:20 The RCA was injected and visualized at various angles. OMNIPAQUE, 350 MG, 150ML 150ML used . 12:49:03 Catheter was removed 12:52:07 HR=68 bpm, WOSG=302/91 mmhg, SpO2=95.0 %, Resp=14 B/min, Pain=0, Ewa=10, Sol=2 A JL 4.0 INFINITI CATHETER FR 5 was advanced over a wire. OMNIPAQUE, 350 MG, 150ML 150ML was us ed for 12:52:14 injections. 12:52:37 The LCA was injected and visualized at various angles. OMNIPAQUE, 350 MG, 150ML 150ML used . 12:57:10 HR=65 bpm, LJYU=945/85 mmhg, SpO2=96.0 %, Resp=19 B/min, Pain=0, Ewa=10, Sol=2 13:02:48 HR=68 bpm, DADX=542/92 mmhg, SpO2=98.0 %, Resp=10 B/min, Pain=0, Ewa=10, Sol=2 13:07:12 HR=72 bpm, KBOJ=279/96 mmhg, SpO2=96.0 %, Resp=9 B/min, Pain=0, Ewa=10, Sol=2 13:10:02 Catheter was removed 13:10:38 Activated Clotting Time Drawn Radial Compression Device Used. ~VOLUME ML~ mLs of air placed in BAND, RADIAL COMPRESSION TR LA RGE 29 13:10:59 29CM. Affected hand 95 % O2 saturation. 13:11:32 No case complications noted. 13:12:11 HR=70 bpm, AWGL=947/97 mmhg, SpO2=94.0 %, Resp=14 B/min, Pain=0, Ewa=10, Sol=2 10 mg HYDRALAZINE given in lab by Blue Mcmillan, RN in Left Antecubital via Peripheral IV. Orde red by Rashid, 13:17:00 Buddy. 13:17:12 HR=67 bpm, RCFI=175/84 mmhg, SpO2=94.0 %, Resp=14 B/min, Pain=0, Ewa=10, Sol=2 13:17:50 Sheath removed; pressure applied to access site. Davina Land holding pressure. 13:22:11 HR=72 bpm, XZOQ=834/81 mmhg, SpO2=96.0 %, Resp=14 B/min, Pain=0, Ewa=10, Sol=2 13:27:12 HR=67 bpm, TSDJ=178/79 mmhg, SpO2=95.0 %, Resp=19 B/min, Pain=0, Ewa=10, Sol=2 13:32:11 HR=65 bpm, TJCR=802/69 mmhg, Resp=17 B/min, Pain=0, Ewa=10, Sol=2 13:36:15 Sterile dressing applied to site 13:36:30 Cine recording checked. 13:36:31 Bedside Report will be given. 13:36:35 Contrast Scanned Assessment: Final Case, HR=67 BPM, Rhythm=lbbb, AEUG=171/58 mmhg, Chest Pain=0, Edema=None, Col or=Normal, Skin = Warm, Dry Right Pulses: Ernst Ped=2, Femoral=2 13:36:43 Left Pulses: Ernst Ped=2, Femoral=2, Radial=3 Neurological: State=Alert, Ox3, ROBLES Respiration: Resp=18 B/min, SpO2=98 % 13:37:08 HR=65 bpm, ADLZ=464/58 mmhg, SpO2=98.0 %, Resp=12 B/min, Pain=0, Ewa=10, Sol=2 13:39:14 [facility] called. Spoke to Anusha End Study - Contrast Media Used In Study Contrast Total Opened (mL) Total Used (mL) Total Wasted (mL) Omnipaque 110 110 0 End Study - Maximum Contrast Load Max Contrast Load (mL) 325.0 End Study - Radiation Exposure Fluoro Time (minutes) 10.9 End Study - Patient Disposition Complications Transferred To Telemetry Bed
[2017-01-03] MEDS ORDERED: MISC INFORMATION XX ONE (13:45)
--- NOTE | 2017-01-03 14:59 | MB ---
cc: BUDDY JONES DO DATE OF CONSULTATION: 01/03/2017. REASON FOR CONSULTATION: Chest pain with shortness of breath. HISTORY OF PRESENT ILLNESS: Arun Serna is a pleasant 81-year-old male who presents to [facility] due to shortness of breath and chest pain with exertion as well as shortness of breath at night. The patient indicates the last few weeks he has been having episodes of chest discomfort on his left side. He seems to be getting more short of breath with any type of exertion but also occasionally while at rest while he is lying down sleeping. When he is lying down sleeping, he seems to get more short of breath and then has to sit up. When he starts to get the chest pain, he takes a nitro and it completely resolves the pain. He has been dealing with this for about a week and when he called our office at that time he was told to go to the hospital for evaluation but the patient decided to hold off. Since he has not improved, he decided he should come to the emergency room. On seeing him today, he is currently without chest pain or shortness of breath. PAST MEDICAL HISTORY: 1. Hypertension. 2. Hyperlipidemia. 3. Coronary artery disease. 4. History of myocardial infarction. 5. Previous severe aortic stenosis. 6. History of tobacco abuse. 7. History of prostate cancer. 8. Obstructive sleep apnea. PAST SURGICAL HISTORY: 1. Cardiac catheterization (February 03, 2015). Left main ostial 95% with distal 80% stenosis. Left anterior descending 70% proximal stenosis. Circumflex 95% stenosis. Stent at the bifurcation of the obtuse marginal appears widely patent. Right coronary artery is occluded. PA fills from quij-lt-trrea collaterals. Left anterior descending patent. FTG to obtuse marginal occluded. Status post Promus stent (2.75 x 28) from the left main into the circumflex. 2. History of coronary artery bypass grafting. 3. 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 4. Bilateral inguinal hernia repair. 5. Appendectomy. 6. Prostatectomy. 7. Cataract surgery. ALLERGIES: 1. ENALAPRIL. 2. NIACIN. 3. PHOSLO. MEDICATIONS: 1. Aspirin 325 milligrams daily. 2. Plavix 75 milligrams daily. 3. Atenolol 50 milligrams daily. 4. Norvasc 10 milligrams daily. 5. Crestor 40 milligrams daily. 6. Protonix 40 milligrams daily. 7. Potassium 10 milliequivalents as directed. FAMILY HISTORY: Denies premature coronary artery disease or sudden cardiac within the family. SOCIAL HISTORY: The patient quit smoking around 30 years ago. He previously smoked two packs of cigarettes a day since he was a teenager. He drinks two glasses of wine daily. Denies drug abuse. REVIEW OF SYSTEMS: Fourteen systems were reviewed including osteopathic with pertinent positives and negatives as above; otherwise negative. PHYSICAL EXAMINATION: VITAL SIGNS: Temperature 98.0, heart rate 70, blood pressure 174/81, respirations 20, pulse ox 96% on room air. GENERAL: In general the patient appears well and in no acute distress, alert, awake and oriented x3. HEAD, EYES, EARS, NOSE, THROAT: Extraocular muscles intact. Mucous membranes moist. NECK: Supple. No JVD at 45 degrees. No carotid bruits heard bilaterally. Carotid upstroke is brisk in nature. HEART: Regular rate and rhythm. Positive first and second heart sounds with a 1/6 crescendo-decrescendo murmur to the right sternal border. LUNGS: Clear to auscultation bilaterally. No wheezes, rales or rhonchi. ABDOMEN: Soft, nontender, nondistended. No organomegaly noted. EXTREMITIES: No clubbing, cyanosis or edema. Femoral and distal pulses are intact bilaterally. NEUROLOGIC: No focal deficits. SKIN: Warm, dry and intact. OSTEOPATHIC: Osteopathically, no kyphoscoliosis, lordosis or paraspinal tender points. LABORATORY FINDINGS: Hemoglobin 13.7, hematocrit 42.3, platelets 161,000. Troponin negative times four. BNP 1368. Total cholesterol 113, LDL 50, HDL 35.3, triglycerides 141. EKGS: Electrocardiogram (January 02, 2017 at 2213): sinus rhythm with occasional PVC, left bundle branch block. IMPRESSIONS: 1. Shortness of breath with exertion as well as lying down possibly due to congestive heart failure. 2. Accelerated hypertension with a blood pressure of 200/104 on arrival to the emergency room. 3. Chest pain concerning for possible angina. 4. History of aortic stenosis status post TAVR (Angelica valve 29 mm) at [facility] in May of 2016. 5. History of coronary artery disease as above coronary anatomy. 6. Hyperlipidemia. RECOMMENDATIONS: 1. Mr. Serna is presenting with chest pain and shortness of breath on exertion as well as shortness of breath with lying down and this may be due to heart failure. It is difficult as his lungs appear relatively clear overall. 2. We did discuss an ischemic evaluation including stress test versus cardiac catheterization and he has agreed undergo cardiac catheterization. 3. Will check a 2-D echo to look at his overall left ventricular function, cardiac structure and possible valvulopathies including his recent TAVR. 4. He will need better blood pressure control as he came into the emergency room with a blood pressure of 200/100 and this may also be a cause of his chest pain and shortness of breath, especially with exertion. 5. Risks, benefits, and alternatives were explained to him and his and they consented. 6. Further recommendations will be made based on the hospital course. Thank you for allowing me to see Arun Serna. If there are any questions, please do not hesitate to call. Buddy Jones DO JUAN/JCC /2:09 PM /2:32 PM
[2017-01-03] MEDS ORDERED: ISOSORBIDE MONONITRATE 30 MG TAB PO ONE (15:00)
[2017-01-03] MEDS ORDERED: PRED2.5T PO (21:58)
[2017-01-03] MEDS: predniSONE 5 MG TAB PO SCH (22:10)
[2017-01-03] MEDS: ASPIRIN 325 MG TAB PO SCH (22:10)
[2017-01-03] MEDS ORDERED: PILL SPLITTER OTHER PRN (22:15)
[2017-01-04] VITALS (28 sets, daily range): BP systolic 126–152; BP diastolic 69–85; PULSE 61–78; RESP 16–20; TEMP 97.7–98.2; O2SAT 93–97
[2017-01-04 05:44] LABS: AUTOMATED NEUTROPHIL # 4.5 TH/MM3 (1.8-7.7); BASOPHIL % 0.3 % (0.0-2.0); EOSINOPHIL % 0.6 % (0.0-4.0); HEMATOCRIT 39.4 % (39.0-51.0); HEMO FLAGS DIFF FINAL; LYMPH % 17.1 % (9.0-44.0); LYMPHOCYTE # 1.1 TH/MM3 (1.0-4.8); MEAN CELL VOLUME 88.9 FL (80.0-100.0); MEAN CORPUSCULAR HEMOGLOBIN 29.7 PG (27.0-34.0); MEAN CORPUSCULAR HGB CONC 33.4 % (32.0-36.0); MONO % 10.7 % (0.0-8.0); NEUT % 71.3 % (16.0-70.0); PLATELET COUNT 141 TH/MM3 (150-450); RED BLOOD COUNT 4.43 MIL/MM3 (4.50-5.90); RED CELL DISTRIBUTION WIDTH 15.2 % (11.6-17.2); WHITE BLOOD COUNT 6.4 TH/MM3 (4.0-11.0)
[2017-01-04] MEDS: ACETAMINOPHEN 325 MG TAB PO PRN ×2 (05:50→20:16)
[2017-01-04 05:58] LABS: APTT (PATIENT) 27.8 SEC (24.3-30.1)
[2017-01-04 06:03] LABS: BICARBONATE 26.3 MEQ/L (21.0-32.0); POTASSIUM 3.5 MEQ/L (3.5-5.1)
[2017-01-04] MEDS ORDERED: ISOSORBIDE MONONITRATE 30 MG TAB PO SCH (07:00)
[2017-01-04] MEDS: predniSONE 5 MG TAB PO SCH ×2 (09:39→20:15)
[2017-01-04] MEDS: SODIUM CHLORIDE 0.9% FLUSH 10 ML FLUSH IV FLUSH SCH ×2 (09:39→20:22)
[2017-01-04] MEDS: ATORVASTATIN 80 MG TAB PO SCH (09:40)
[2017-01-04] MEDS: PANTOPRAZOLE SOD 40 MG DELAYED RELEASE TAB PO SCH (09:40)
[2017-01-04] MEDS: CLOPIDOGREL 75 MG TAB PO SCH (09:40)
[2017-01-04] MEDS: ATENOLOL 50 MG TAB PO SCH (09:40)
[2017-01-04] MEDS: NITROGLYCERIN 2% OINT 1 GM PACKET TOP SCH (09:40)
--- NOTE | 2017-01-04 10:02 | PD.CARD.PN ---
Subjective Subjective Remarks No events over night Up and ambulating without chest pain or shortness of breath Objective Medications Current Medications Medications (Trade) Dose Ordered Sig/Dwain Route Start Time Stop Time Status Last Admin (Norvasc) 10 mg DAILY PO 01/03/17 09:00 01/04/17 09:40 (Aspirin) 325 mg HS PO 01/02/17 21:00 01/03/17 22:10 (Tenormin) 50 mg DAILY PO 01/03/17 09:00 01/04/17 09:40 (Plavix) 75 mg DAILY PO 01/03/17 09:00 01/04/17 09:40 (Protonix) 40 mg DAILY PO 01/03/17 09:00 01/04/17 09:40 (Lipitor) 80 mg DAILY PO 01/03/17 09:00 01/04/17 09:40 (NS Flush) 2 ml BID IV FLUSH 01/02/17 21:00 01/04/17 09:39 (NS Flush) 2 ml UNSCH PRN IV FLUSH 01/02/17 16:15 (Nitroglycerin 2% Oint) 1 inch DAILY TOP 01/03/17 09:00 01/04/17 09:40 (Morphine Inj) 2 mg Q30M PRN IV PUSH 01/02/17 16:15 (Tylenol) 650 mg Q6H PRN PO 01/02/17 16:15 01/04/17 05:50 (Xanax) 0.25 mg Q8H PRN PO 01/02/17 16:15 01/03/17 17:25 (Zofran Inj) 4 mg Q6H PRN IV 01/02/17 16:15 (Catapres) 0.1 mg Q6H PRN PO 01/02/17 16:45 (Imdur) 30 mg DAILY@07 PO 01/04/17 07:00 01/04/17 05:50 (Deltasone) 2.5 mg BID PO 01/03/17 22:00 01/04/17 09:39 (Pill Splitter) 1 ea UNSCH PRN OTHER 01/03/17 22:15 Vital Signs / I&O Vital Signs Date Time Temp Pulse Resp B/P Pulse Ox O2 Delivery O2 Flow Rate FiO2 01/04/17 08:00 97.9 66 18 126/71 96 01/04/17 08:00 66 01/04/17 07:00 61 01/04/17 07:00 66 01/04/17 06:00 64 01/04/17 05:00 70 01/04/17 04:00 69 01/04/17 03:30 98.2 75 16 139/74 93 01/04/17 03:00 77 01/04/17 02:00 70 01/04/17 01:00 67 01/04/17 00:00 65 01/03/17 23:20 98.0 71 16 115/65 93 01/03/17 23:00 61 01/03/17 22:00 70 01/03/17 21:00 64 01/03/17 20:19 95 01/03/17 20:00 70 01/03/17 19:45 98.1 70 16 137/74 94 01/03/17 19:38 18 01/03/17 19:00 71 01/03/17 18:00 68 01/03/17 17:00 64 01/03/17 16:00 70 01/03/17 15:00 98.8 64 20 153/72 94 01/03/17 15:00 62 01/03/17 14:00 98.1 69 20 145/77 95 01/03/17 11:00 57 01/03/17 10:00 62 I/O 01/03/17 01/03/17 01/03/17 01/04/17 01/04/17 01/04/17 06:59 14:59 22:59 06:59 14:59 22:59 Intake Total 348 ml 480 ml 480 ml Output Total 1400 ml 925 ml 550 ml Balance -1052 ml -445 ml -70 ml Intake Oral 240 ml 480 ml 480 ml IV Total 108 ml 0 ml Output Urine Total 1400 ml 925 ml 550 ml # Bowel Movements 0 Physical Exam GENERAL: NAD, AAOx3 SKIN: Warm and dry. HEAD: Atraumatic. Normocephalic. EYES: Pupils equal and round. No scleral icterus. No injection or drainage. ENT: No nasal bleeding or discharge. Mucous membranes pink and moist. NECK: Trachea midline. No JVD. CARDIOVASCULAR: Regular rate and rhythm. /6 crescendo-decrescendo systolic murmur to the RSB RESPIRATORY: No accessory muscle use. Clear to auscultation. Breath sounds equal bilaterally. GASTROINTESTINAL: Abdomen soft, non-tender, nondistended. Hepatic and splenic margins not palpable. MUSCULOSKELETAL: Extremities without clubbing, cyanosis, or edema. No obvious deformities. Left radial no hematoma, neurovascularly intact distally. Right femoral no hematoma NEUROLOGICAL: Awake and alert. No obvious cranial nerve deficits. Motor grossly within normal limits. Five out of 5 muscle strength in the arms and legs. Normal speech. PSYCHIATRIC: Appropriate mood and affect; insight and judgment normal. Laboratory Laboratory Tests Test 01/04/17 05:01 White Blood Count 6.4 TH/MM3 Red Blood Count 4.43 MIL/MM3 Hemoglobin 13.2 GM/DL Hematocrit 39.4 % Mean Corpuscular Volume 88.9 FL Mean Corpuscular Hemoglobin 29.7 PG Mean Corpuscular Hemoglobin 33.4 % Concent Red Cell Distribution Width 15.2 % Platelet Count 141 TH/MM3 Mean Platelet Volume 7.8 FL Neutrophils (%) (Auto) 71.3 % Lymphocytes (%) (Auto) 17.1 % Monocytes (%) (Auto) 10.7 % Eosinophils (%) (Auto) 0.6 % Basophils (%) (Auto) 0.3 % Neutrophils # (Auto) 4.5 TH/MM3 Lymphocytes # (Auto) 1.1 TH/MM3 Monocytes # (Auto) 0.7 TH/MM3 Eosinophils # (Auto) 0.0 TH/MM3 Basophils # (Auto) 0.0 TH/MM3 CBC Comment DIFF FINAL Differential Comment Activated Partial 27.8 SEC Thromboplast Time Sodium Level 139 MEQ/L Potassium Level 3.5 MEQ/L Chloride Level 104 MEQ/L Carbon Dioxide Level 26.3 MEQ/L Anion Gap 9 MEQ/L Blood Urea Nitrogen 23 MG/DL Creatinine 1.10 MG/DL Estimat Glomerular Filtration 64 ML/MIN Rate Random Glucose 109 MG/DL Calcium Level 9.2 MG/DL Assessment and Plan Problem List: (1) Chest pain (2) Hypertension (3) Hyperlipidemia (4) History of coronary artery bypass surgery (5) (aortic stenosis) Assessment and Plan 1) Presenting with angina, troponins negative and accelerated HTN 2) Cardiac cath showing multivessel CAD NORTH to LAD patent SVG to OM known occluded RCA known occluded Left main with ostial 90% at the level of the top of the TAVR stent, unable to engage with diagnostic catheter LCx with 90% ISR 3) Will attempt to increase medical management before difficult intervention as stent may impede on edge of TAVR stent Increase Imdur to 90mg daily for anti-anginal and anti-hypertensive properties Since blood pressure controlled in the hospital, no longer having CP/SOB with exertion 4) 2D echo pending to evaluate previous TAVR Problem Qualifiers (1) Chest pain: Qualified Code: R07.9 - Chest pain, unspecified type Buddy Mike DO Jan 04, 2017 10:02
--- NOTE | 2017-01-04 10:02 | HHI.PR ---
Subjective Remarks Follow-up unstable angina 01/03/17-patient seen and examined ; he has just returned from [facility] [place] without any stent placement. Case discussed with Dr Mike, Cardiology 01/04/17-patient seen and examined; denies any shortness of breath or chest pain ; states would like to go home today. by the bedside Objective Vitals Vital Signs Date Time Temp Pulse Resp B/P Pulse Ox O2 Delivery O2 Flow Rate FiO2 01/04/17 08:00 97.9 66 18 126/71 96 01/04/17 08:00 66 01/04/17 07:00 61 01/04/17 07:00 66 01/04/17 06:00 64 01/04/17 05:00 70 01/04/17 04:00 69 01/04/17 03:30 98.2 75 16 139/74 93 01/04/17 03:00 77 01/04/17 02:00 70 01/04/17 01:00 67 01/04/17 00:00 65 01/03/17 23:20 98.0 71 16 115/65 93 01/03/17 23:00 61 01/03/17 22:00 70 01/03/17 21:00 64 01/03/17 20:19 95 01/03/17 20:00 70 01/03/17 19:45 98.1 70 16 137/74 94 01/03/17 19:38 18 01/03/17 19:00 71 01/03/17 18:00 68 01/03/17 17:00 64 01/03/17 16:00 70 01/03/17 15:00 98.8 64 20 153/72 94 01/03/17 15:00 62 01/03/17 14:00 98.1 69 20 145/77 95 01/03/17 11:00 57 I/O 01/03/17 01/03/17 01/03/17 01/04/17 01/04/17 01/04/17 07:00 15:00 23:00 07:00 15:00 23:00 Intake Total 348 ml 480 ml 480 ml Output Total 1400 ml 925 ml 550 ml Balance -1052 ml -445 ml -70 ml Intake Oral 240 ml 480 ml 480 ml IV Total 108 ml 0 ml Output Urine Total 1400 ml 925 ml 550 ml # Bowel Movements 0 Result Diagram: 01/04/17 0501 01/04/17 0501 Objective Remarks GENERAL: NAD SKIN: Warm and dry. HEAD: Normocephalic. EYES: No scleral icterus. No injection or drainage. NECK: Supple, trachea midline. No JVD or lymphadenopathy. CARDIOVASCULAR: Regular rate and rhythm without murmurs, gallops, or rubs. RESPIRATORY: Breath sounds equal bilaterally. No accessory muscle use. GASTROINTESTINAL: Abdomen soft, non-tender, nondistended. MUSCULOSKELETAL: No cyanosis, or edema. BACK: Nontender without obvious deformity. No CVA tenderness. A/P Problem List: (1) Unstable angina ICD Code: I20.0 Status: Acute (2) Elevated brain natriuretic peptide (BNP) level ICD Code: R79.89 Status: Acute (3) Hypertension ICD Code: I10 Status: Chronic (4) Hyperlipidemia ICD Code: E78.5 Status: Chronic Assessment and Plan 81-year-old man with Unstable angina Appreciate input from cardiology and had left heart catheterization without any stent placed 01/03/17 Medical Management Continue with aspirin, beta razia, Norvasc, Plavix, statin, Nitropaste, and Imdur 90mg daily Hypertension Currently on Norvasc, beta razia Hyperlipidemia Continue with statin DVT prophylaxis B-SCD Elpidio Frances MD Jan 04, 2017 10:02
--- NOTE | 2017-01-04 11:25 | MA ---
cc: BUDDY JONES DO DATE: 01/03/2017 PROCEDURE Coronary angiogram, bypass graft angiogram, moderate sedation 60 minutes PREPROCEDURE DIAGNOSIS Chest pain, shortness of breath, accelerated hypertension. POSTPROCEDURE DIAGNOSIS Multivessel coronary artery disease, patent NORTH to LAD. MEDICATIONS 1. Versed 0.5 mg. 2. Fentanyl 25 mcg. 3. Verapamil 2.5 mg. 4. Nitro 200 mcg. 5. Heparin 3000 units. CONTRAST USED 110 cc. FLUOROSCOPY 10.9 minutes. SEDATION Moderate sedation 60 minutes PROCEDURAL SUMMARY Arun Serna is a pleasant 81-year-old male who presented with accelerated hypertension, chest pain and shortness of breath. It was felt that he should undergo cardiac catheterization due to his history of coronary artery disease and his presentation. The risks, benefits and alternatives were explained to him and he consents to such. The left radial artery was accessed using a modified Seldinger technique and placement of a 5/6 [place] sheath. This was easily aspirated and flushed. A JR4 catheter was advanced over a J-wire to the left subclavian and the FR4 catheter was engaged into the NORTH. Afterwards, the JR4 was then used for selective angiography of the left subclavian artery takeoff as the angulation did not allow for us to advance into the ascending aorta. Because of this, the right femoral artery was accessed using a modified Seldinger technique and placement of a 5-[place] sheath. This was easily aspirated and flushed. A JR4 was then advanced over a J-wire to the ascending aorta and used for selective angiography of the right coronary artery. This was then exchanged for a JL4 catheter which was used for selective angiography of the left coronary system. The JL4 was then removed over a J-wire. A radial band was placed across the arteriotomy site for hemostasis. The right femoral artery sheath was removed and pressure was held for hemostasis. 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 FINDINGS Left main: There appears to be ostial disease of 90% with heavy calcification as well as distal disease of 50%. It bifurcates into an LAD and circumflex. The LAD has a 90% stenosis in the midportion and there is competitive flow from the NORTH. It does give off two small diagonals before the stenosis. Left circumflex: Ostial lesion of 80-90% from in-stent restenosis. The AV groove circ appears to have a 99% stenosis. It gives off one major obtuse marginal where there appears to be in-stent restenosis of 30%. RCA: 100% occluded proximally. NORTH to LAD: Patent with retrograde flow filling the proximal and midportion of the LAD. SVG to obtuse marginal: Known occluded from before. IMPRESSIONS 1. Multivessel coronary artery disease. 2. History of TAVR. 3. Accelerated hypertension. RECOMMENDATIONS 1. Mr. Serna presented with chest pain which may be due to his coronary artery disease as well as accelerated hypertension. 2. His ostial left main disease was unable to be engaged with a diagnostic catheter as it is at the level of the upper portion of his TAVR. 3. As he presented with normal troponins as well as accelerated hypertension, I feel that we should attempt to try to treat this with optimal medical management before attempting a high-risk procedure at the ostium of the left main, may affect part of the TAVR stent. 4. We will plan on adding Imdur 30 mg daily to his regimen to help not only from an antihypertensive but also an antianginal standpoint. 5. If he continues to have anginal symptoms, consideration will be made for further intervention on the ostial circ as well as the ostial left main. Thank you for allowing me to see Arun Serna. If there are any questions, please do not hesitate to call. Buddy Jones DO VGP/BJF /12:10 AM /11:01 AM
--- NOTE | 2017-01-04 14:44 | ECHRPT ---
Indication: Cardiomyopathy, unspecified CONCLUSIONS The left ventricular systolic function is moderately reduced with an estimated ejection fraction in the range of 40-45%. Wall thickness is normal. Normal left ventricular size. There is mild tricuspid valve regurgitation. The estimated pulmonary arterial pressure is 29 mmHg. The aortic prosthesis is not well visualized. No aortic valve regurgitation. Unknown aortic valve prosthesis type. BP: 174 / 81 HR: 57 Rhythm: Sinus MEASUREMENTS (Male / Female) Normal Values Technical Quality:Fair 2D ECHO LV Diastolic Diameter PLAX 5.2 cm 4.2 - 5.9 / 3.9 - 5.3 cm LV Systolic Diameter PLAX 4.4 cm IVS Diastolic Thickness 0.9 cm 0.6 - 1.0 / 0.6 - 0.9 cm LVPW Diastolic Thickness 0.9 cm 0.6 - 1.0 / 0.6 - 0.9 cm LV Relative Wall Thickness 0.4 LVOT Diameter 2.9 cm LA Systolic Diameter LX 4.7 cm 3.0 - 4.0 / 2.7 - 3.8 cm M-MODE Aortic Root Diameter MM 2.6 cm DOPPLER AV Peak Velocity 188.8 cm/s AV Peak Gradient 14.3 mmHg AV Mean Gradient 9.7 mmHg AV Velocity Time Integral 47.3 cm LVOT Peak Velocity 72.1 cm/s LVOT Peak Gradient 2.1 mmHg AV Area Cont Eq pk 2.5 cm Mitral E Point Velocity 88.8 cm/s Mitral A Point Velocity 70.1 cm/s Mitral E to A Ratio 1.3 LV E' Lateral Velocity 7.7 cm/s Mitral E to LV E' Lateral Ratio 11.5 LV E' Septal Velocity 2.8 cm/s Mitral E to LV E' Septal Ratio 31.4 TR Peak Velocity 163.0 cm/s TR Peak Gradient 10.6 mmHg PV Peak Velocity 97.7 cm/s PV Peak Gradient 3.8 mmHg FINDINGS LEFT VENTRICLE There is global left ventricular dysfunction. The left ventricular systolic function is moderately reduced with an estimated ejection fraction in the range of 40-45%. Wall thickness is normal. Normal left ventricular size. RIGHT VENTRICLE Normal right ventricular size and systolic function. LEFT ATRIUM The left atrial size is normal. RIGHT ATRIUM The right atrial size is normal. ATRIAL SEPTUM Normal atrial septal thickness without atrial level shunting by limited color doppler interrogation. AORTA The aortic root and proximal ascending aorta are normal in size on limited imaging. MITRAL VALVE No mitral valve stenosis or regurgitation. Moderate mitral annular calcification. AORTIC VALVE The aortic prosthesis is not well visualized. No aortic valve regurgitation. Unknown aortic valve prosthesis type. TRICUSPID VALVE There is mild tricuspid valve regurgitation. The estimated pulmonary arterial pressure is 29 mmHg. PULMONARY VALVE The pulmonary valve is not well visualized. VESSELS The inferior vena cava is normal in size. PERICARDIUM No pericardial effusion. Gatito Ahn MD (Electronically Signed) Final Date:04 January 2017 14:43
--- NOTE | 2017-01-04 17:14 | EKG ---
Date Performed: 01/03/2017 Time Performed: 04:03:42 PTAGE: 81 years EKG: Sinus rhythm with PAC(s) with borderline 1st degree A-V block --- Suspect arm lead reversal - only aVF, V1-V6 heide lyzed --- IV conduction defect Biventricular hypertrophy Lateral ST-T changes may be due to hypertrop hy and/or ischemia Abnormal ECG PREVIOUS TRACING : 01/02/2017 22.13 Compared to the previous tracing, comparison unavailable du e to probable arm lead reversal DOCTOR: Buddy Mike Interpretating Date/Time 01/04/2017 17:13:39
[2017-01-04] MEDS: ASPIRIN 325 MG TAB PO SCH (20:15)
[2017-01-05] VITALS (13 sets, daily range): BP systolic 111–147; BP diastolic 60–80; PULSE 61–92; RESP 20; TEMP 97.4–98.2; O2SAT 93–95
[2017-01-05 06:36] LABS: HEMATOCRIT 38.7 % (39.0-51.0); MEAN CELL VOLUME 89.7 FL (80.0-100.0); MEAN CORPUSCULAR HEMOGLOBIN 29.1 PG (27.0-34.0); MEAN CORPUSCULAR HGB CONC 32.5 % (32.0-36.0); PLATELET COUNT 135 TH/MM3 (150-450); RED BLOOD COUNT 4.32 MIL/MM3 (4.50-5.90); RED CELL DISTRIBUTION WIDTH 15.1 % (11.6-17.2); REVIEW FLAG FINAL; WHITE BLOOD COUNT 6.3 TH/MM3 (4.0-11.0)
[2017-01-05] MEDS ORDERED: ISOSORBIDE MONONITRATE 30 MG TAB PO SCH (07:00)
[2017-01-05] MEDS: SODIUM CHLORIDE 0.9% FLUSH 10 ML FLUSH IV FLUSH SCH (09:16)
[2017-01-05] MEDS: ATORVASTATIN 80 MG TAB PO SCH (09:17)
[2017-01-05] MEDS: predniSONE 5 MG TAB PO SCH (09:17)
[2017-01-05] MEDS: PANTOPRAZOLE SOD 40 MG DELAYED RELEASE TAB PO SCH (09:18)
[2017-01-05] MEDS: NITROGLYCERIN 2% OINT 1 GM PACKET TOP SCH (09:18)
[2017-01-05] MEDS: ATENOLOL 50 MG TAB PO SCH (09:18)
[2017-01-05] MEDS: CLOPIDOGREL 75 MG TAB PO SCH (09:18)
--- NOTE | 2017-01-05 09:18 | HHI.PR ---
Subjective Remarks Follow-up unstable angina 01/03/17-patient seen and examined ; he has just returned from [facility] without any stent placement. Case discussed with Dr Mike, Cardiology 01/04/17-patient seen and examined; denies any shortness of breath or chest pain ; states would like to go home today. by the bedside 01/05/17-patient seen and examined, stable and no complaint of shortness of breath. BP normotensive. Objective Vitals Vital Signs Date Time Temp Pulse Resp B/P Pulse Ox O2 Delivery O2 Flow Rate FiO2 01/05/17 08:32 95 21 01/05/17 07:48 97.4 76 20 111/60 93 01/05/17 07:00 64 01/05/17 06:00 70 01/05/17 05:00 61 01/05/17 04:00 98.2 69 20 147/78 95 01/05/17 04:00 65 01/05/17 03:00 69 01/05/17 02:00 68 01/05/17 01:00 67 01/05/17 00:00 98.0 76 20 140/80 95 01/05/17 00:00 73 01/04/17 23:00 69 01/04/17 22:00 67 01/04/17 21:00 70 01/04/17 20:00 69 01/04/17 20:00 97.9 70 20 151/85 95 01/04/17 19:00 70 01/04/17 18:00 72 01/04/17 18:00 71 01/04/17 17:39 96 21 01/04/17 17:00 77 01/04/17 16:00 66 01/04/17 15:21 97.7 77 20 152/69 96 01/04/17 15:00 70 01/04/17 14:00 68 01/04/17 13:00 66 01/04/17 12:00 78 01/04/17 11:00 78 20 148/77 97 01/04/17 11:00 66 01/04/17 10:48 96 21 01/04/17 10:00 72 I/O 01/04/17 01/04/17 01/04/17 01/05/17 01/05/17 01/05/17 07:00 15:00 23:00 07:00 15:00 23:00 Intake Total 480 ml 720 ml 420 ml Output Total 550 ml 2100 ml Balance -70 ml -1380 ml 420 ml Intake Oral 480 ml 720 ml 420 ml IV Total 0 ml Output Urine Total 550 ml 2100 ml # Voids 4 # Bowel Movements 0 Result Diagram: 01/05/17 0454 01/04/17 0501 Imaging Last Impressions Chest X-Ray 01/02/17 1146 Signed Impressions: Service Date/Time: December 11:50 - CONCLUSION: No acute cardiopulmonary abnormality is identified. There is mild atelectasis at the lung bases. Jona Flores MD Objective Remarks GENERAL: NAD SKIN: Warm and dry. HEAD: Normocephalic. EYES: No scleral icterus. No injection or drainage. NECK: Supple, trachea midline. No JVD or lymphadenopathy. CARDIOVASCULAR: Regular rate and rhythm without murmurs, gallops, or rubs. RESPIRATORY: Breath sounds equal bilaterally. No accessory muscle use. GASTROINTESTINAL: Abdomen soft, non-tender, nondistended. MUSCULOSKELETAL: No cyanosis, or edema. BACK: Nontender without obvious deformity. No CVA tenderness. Procedures None A/P Problem List: (1) Unstable angina ICD Code: I20.0 Status: Acute (2) Elevated brain natriuretic peptide (BNP) level ICD Code: R79.89 Status: Acute (3) Hypertension ICD Code: I10 Status: Chronic (4) Hyperlipidemia ICD Code: E78.5 Status: Chronic Assessment and Plan 81-year-old man with Unstable angina Appreciate input from cardiology and had left heart catheterization without any stent placed 01/03/17 with finding of NORTH to LAD patent SVG to OM known occluded RCA known occluded Left main with ostial 90% at the level of the top of the TAVR stent, unable to engage with diagnostic catheter LCx with 90% ISR Medical Management 2-D echo with EF 40-45% Continue with aspirin, beta razia, Norvasc, Plavix, statin, Nitropaste, and Imdur 90mg daily Hypertension Currently on Norvasc, beta razia, Imdur Hyperlipidemia Continue with statin DVT prophylaxis B-SCD Discharge Planning Likely discharge home today 01/05/17 Elpidio Frances MD Jan 05, 2017 09:17
[2017-01-05] MEDS ORDERED: ISOS30TA3 PO (09:23)
[2017-01-05] MEDS: ACETAMINOPHEN 325 MG TAB PO PRN (09:24)
--- NOTE | 2017-01-05 10:25 | HHI.DS ---
Discharge Summary Admission Date Jan 02, 2017 at 16:18 Discharge Date: Jan 05, 2017 Admitting Diagnosis chest pain. Dyspnea. (1) Unstable angina ICD Code: I20.0 (2) Elevated brain natriuretic peptide (BNP) level ICD Code: R79.89 (3) Hypertension ICD Code: I10 (4) Hyperlipidemia ICD Code: E78.5 Procedures None Brief History - From Admission Written by Duran Weber, acting as scribe for Dr. Alberto on 01/02/17 at 15:34. 81 year-old male with known history of hypertension, severe coronary artery disease, history of severe aortic stenosis status post aortic valve replacement, obstructive sleep apnea who presented to hospital because of chest pain, shortness of breath. Patient indicates that her last 2 weeks he has been having episodes of chest discomfort located in the left side of his chest radiating to his left arm. The discomfort can happen when he is exerting himself and or at rest, lying down, while he is asleep. Pain is severe and he takes nitroglycerin with complete resolution of his pain. Patient does have a rather significant history of coronary artery disease with coronary bypass surgery, multiple cardiac catheterizations with stenting of the left main, circumflex. Patient's automobile body worker Dr. Mena is out of town. The indicates that they called the automobile body worker office a week ago and was told to go to the hospital for evaluation, however the patient did not want to go at that time. However because the patient's pain has not improved and he has been getting more short of breath whenever he exerts himself he decided come to the hospital for evaluation. Patient indicates that he does have obstructive sleep apnea however he does not wear his mask because it is uncomfortable. He thinks that this could have something do with his symptoms that he is experiencing. Patient indicates that he is having left-sided chest pain radiating to his left arm and shoulder, denies any nausea, vomiting, diaphoresis. Does have associated shortness of breath and dyspnea. Denies any lightheadedness or dizziness. CBC/BMP: 01/05/17 0454 01/04/17 0501 Significant Findings Laboratory Tests Test 01/02/17 01/02/17 01/02/17 01/03/17 11:50 16:42 22:44 04:21 Neutrophils (%) (Auto) 73.2 % (16.0-70.0) Blood Urea Nitrogen 26 MG/DL (7-18) Estimat Glomerular Filtration 58 ML/MIN (>89) Rate Total Creatine Kinase 32 U/L (39-308) 28 U/L (39-308) 26 U/L (39-308) 25 U/L (39 -308) B-Type Natriuretic Peptide 1368 PG/ML (0-100) Activated Partial 41.4 SEC 42.0 SEC Thromboplast Time (24.3-30.1) (24.3-30.1) Cholesterol Level 113 MG/DL (120-200) HDL Cholesterol 35.3 MG/DL (40.0-60.0) Test 01/04/17 01/05/17 05:01 04:54 Red Blood Count 4.43 MIL/MM3 4.32 MIL/MM3 (4.50-5.90) (4.50-5.90) Platelet Count 141 TH/MM3 135 TH/MM3 (150-450) (150-450) Neutrophils (%) (Auto) 71.3 % (16.0-70.0) Monocytes (%) (Auto) 10.7 % (0.0-8.0) Blood Urea Nitrogen 23 MG/DL (7-18) Estimat Glomerular Filtration 64 ML/MIN (>89) Rate Random Glucose 109 MG/DL (74-106) Hemoglobin 12.6 GM/DL (13.0-17.0) Hematocrit 38.7 % (39.0-51.0) Imaging Last Impressions Chest X-Ray 01/02/17 1146 Signed Impressions: Service Date/Time: December 11:50 - CONCLUSION: No acute cardiopulmonary abnormality is identified. There is mild atelectasis at the lung bases. Jona Flores MD PE at Discharge GENERAL: NAD SKIN: Warm and dry. HEAD: Normocephalic. EYES: No scleral icterus. No injection or drainage. NECK: Supple, trachea midline. No JVD or lymphadenopathy. CARDIOVASCULAR: Regular rate and rhythm without murmurs, gallops, or rubs. RESPIRATORY: Breath sounds equal bilaterally. No accessory muscle use. GASTROINTESTINAL: Abdomen soft, non-tender, nondistended. MUSCULOSKELETAL: No cyanosis, or edema. BACK: Nontender without obvious deformity. No CVA tenderness. Hospital Course Patient was admitted secondary to unstable angina for which cardiology was consulted and patient underwent left heart catheterization however without any stent placement. He was managed medically and was continue on Imdur however at increased dose 90 mg daily. He was continued on Plavix, aspirin initially started on heparin drip. His blood pressure medication was adjusted accordingly and prior to discharge patient remains normotensive. DVT and GI prophylaxis were provided. Prior to discharge, patient's condition improved and vitals remained stable. Pt Condition on Discharge: Stable Discharge Disposition: Discharge Home Discharge Time: > 30 minutes Discharge Instructions DIET: Follow Instructions for: Heart Healthy Diet Activities you can perform: Regular-No Restrictions Follow up Referrals: Cardiology PCP Follow-up - 1 Week New Medications: Isosorbide Mononitrate ER (Isosorbide Mononitrate ER) 30 Mg Rupesh 90 MG PO DAILY@07 Prevent Heart Failure #30 Ref 3 TAB Continued Medications: Acetaminophen (Tylenol) 325 Mg Tab 1000 MG PO TID PRN PAIN SCALE 5 TO 10 Ref 0 TAB Amlodipine (Amlodipine) 10 Mg Tab 10 MG PO DAILY Blood Pressure Management #30 Ref 0 TAB Aspirin (Aspirin) 325 Mg Tab 325 MG PO HS #30 Ref 0 TAB Atenolol (Atenolol) 50 Mg Tab 50 MG PO DAILY Blood Pressure Management #30 Ref 0 TAB Clopidogrel (Clopidogrel) 75 Mg Tab 75 MG PO DAILY Blood Clot Prevention #30 Ref 0 TAB Glucosamine-Chondroitin (Glucosamine-Chondroitin) 500-400 Mg Tab 1 TAB PO BID Herbal Supplements Ref 0 TAB [place]-3 Fatty Acids (Fish Oil 1200 mg) 1 Cap Cap 1 TAB PO DAILY Pantoprazole (Pantoprazole) 40 Mg Tab 40 MG PO DAILY Reflux #30 Ref 0 TAB Potassium Chloride ER (Potassium Chloride ER) 10 Meq Cap 10 MEQ PO DIRECTED Electrolyte Replacement #60 Ref 0 CAP Prednisone (Prednisone) 2.5 Mg Tab 2.5 MG PO BID Ref 0 TAB Rosuvastatin (Rosuvastatin) 40 Mg Tab 40 MG PO DAILY Cholesterol Management #30 Ref 0 TAB Elpidio Francse MD Jan 05, 2017 10:25
--- NOTE | 2017-01-05 11:23 | PD.CARD.PN ---
Subjective Subjective Remarks Doing well, no chest pain/SOB with walking Objective Medications Current Medications Medications (Trade) Dose Ordered Sig/Dwain Route Start Time Stop Time Status Last Admin (Norvasc) 10 mg DAILY PO 01/03/17 09:00 01/05/17 09:17 (Aspirin) 325 mg HS PO 01/02/17 21:00 01/04/17 20:15 (Tenormin) 50 mg DAILY PO 01/03/17 09:00 01/05/17 09:18 (Plavix) 75 mg DAILY PO 01/03/17 09:00 01/05/17 09:18 (Protonix) 40 mg DAILY PO 01/03/17 09:00 01/05/17 09:18 (Lipitor) 80 mg DAILY PO 01/03/17 09:00 01/05/17 09:17 (NS Flush) 2 ml BID IV FLUSH 01/02/17 21:00 01/05/17 09:16 (NS Flush) 2 ml UNSCH PRN IV FLUSH 01/02/17 16:15 (Nitroglycerin 2% Oint) 1 inch DAILY TOP 01/03/17 09:00 01/05/17 09:18 (Morphine Inj) 2 mg Q30M PRN IV PUSH 01/02/17 16:15 (Tylenol) 650 mg Q6H PRN PO 01/02/17 16:15 01/05/17 09:24 (Xanax) 0.25 mg Q8H PRN PO 01/02/17 16:15 01/03/17 17:25 (Zofran Inj) 4 mg Q6H PRN IV 01/02/17 16:15 (Catapres) 0.1 mg Q6H PRN PO 01/02/17 16:45 (Deltasone) 2.5 mg BID PO 01/03/17 22:00 01/05/17 09:17 (Pill Splitter) 1 ea UNSCH PRN OTHER 01/03/17 22:15 (Imdur) 90 mg DAILY@07 PO 01/05/17 07:00 01/05/17 05:42 Vital Signs / I&O Vital Signs Date Time Temp Pulse Resp B/P Pulse Ox O2 Delivery O2 Flow Rate FiO2 01/05/17 10:00 70 01/05/17 09:00 82 01/05/17 08:32 95 21 01/05/17 08:00 92 01/05/17 07:48 97.4 76 20 111/60 93 01/05/17 07:00 66 01/05/17 07:00 64 01/05/17 06:00 70 01/05/17 05:00 61 01/05/17 04:00 98.2 69 20 147/78 95 01/05/17 04:00 65 01/05/17 03:00 69 01/05/17 02:00 68 01/05/17 01:00 67 01/05/17 00:00 98.0 76 20 140/80 95 01/05/17 00:00 73 01/04/17 23:00 69 01/04/17 22:00 67 01/04/17 21:00 70 01/04/17 20:00 69 01/04/17 20:00 97.9 70 20 151/85 95 01/04/17 19:00 70 01/04/17 18:00 72 01/04/17 18:00 71 01/04/17 17:39 96 21 01/04/17 17:00 77 01/04/17 16:00 66 01/04/17 15:21 97.7 77 20 152/69 96 01/04/17 15:00 70 01/04/17 14:00 68 01/04/17 13:00 66 01/04/17 12:00 78 I/O 01/04/17 01/04/17 01/04/17 01/05/17 01/05/17 01/05/17 07:00 15:00 23:00 07:00 15:00 23:00 Intake Total 480 ml 720 ml 420 ml Output Total 550 ml 2100 ml Balance -70 ml -1380 ml 420 ml Intake Oral 480 ml 720 ml 420 ml IV Total 0 ml Output Urine Total 550 ml 2100 ml # Voids 4 # Bowel Movements 0 Physical Exam GENERAL: NAD, AAOx3 SKIN: Warm and dry. HEAD: Atraumatic. Normocephalic. EYES: Pupils equal and round. No scleral icterus. No injection or drainage. ENT: No nasal bleeding or discharge. Mucous membranes pink and moist. NECK: Trachea midline. No JVD. CARDIOVASCULAR: Regular rate and rhythm. /6 crescendo-decrescendo systolic murmur to the RSB RESPIRATORY: No accessory muscle use. Clear to auscultation. Breath sounds equal bilaterally. GASTROINTESTINAL: Abdomen soft, non-tender, nondistended. Hepatic and splenic margins not palpable. MUSCULOSKELETAL: Extremities without clubbing, cyanosis, or edema. No obvious deformities. Left radial no hematoma, neurovascularly intact distally. Right femoral no hematoma NEUROLOGICAL: Awake and alert. No obvious cranial nerve deficits. Motor grossly within normal limits. Five out of 5 muscle strength in the arms and legs. Normal speech. PSYCHIATRIC: Appropriate mood and affect; insight and judgment normal. Laboratory Laboratory Tests Test 01/05/17 04:54 White Blood Count 6.3 TH/MM3 Red Blood Count 4.32 MIL/MM3 Hemoglobin 12.6 GM/DL Hematocrit 38.7 % Mean Corpuscular Volume 89.7 FL Mean Corpuscular Hemoglobin 29.1 PG Mean Corpuscular Hemoglobin 32.5 % Concent Red Cell Distribution Width 15.1 % Platelet Count 135 TH/MM3 Mean Platelet Volume 7.8 FL Assessment and Plan Problem List: (1) Chest pain (2) Hypertension (3) Hyperlipidemia (4) History of coronary artery bypass surgery (5) (aortic stenosis) Assessment and Plan 1) Presenting with angina, troponins negative and accelerated HTN 2) Cardiac cath showing multivessel CAD NORTH to LAD patent SVG to OM known occluded RCA known occluded Left main with ostial 90% at the level of the top of the TAVR stent, unable to engage with diagnostic catheter LCx with 90% ISR 3) Will attempt to increase medical management before difficult intervention as stent may impede on edge of TAVR stent Increase Imdur to 90mg daily for anti-anginal and anti-hypertensive properties Since blood pressure controlled in the hospital, no longer having CP/SOB with exertion 4) EF 40-45%, TAVR prosthesis appears to be working well (no AR, mean grad 9) 5) Cardiovascularly stable for discharge, will follow up with Dr. CORBETT Problem Qualifiers (1) Chest pain: Qualified Code: R07.9 - Chest pain, unspecified type Mike,Mayaixa Harley FONG Jan 05, 2017 11:23
== END 2017-01-05 11:29 | disposition home or self-care (01) | DRG 287 ==
LOC: PHED 11:33 → PHEDA 13:55 → OBSVTOIN 16:18 → HCIN 16:39
PROVIDERS: ADMIT Hospitalist; ATTEND Hospitalist
PROC: 4A023N7 Measurement of Cardiac Sampling and Pressure, Left Heart, Percutaneous Approach (ICD-10-PCS; principal; 2017-01-04)
PROC: B2111ZZ Fluoroscopy of Multiple Coronary Arteries using Low Osmolar Contrast (ICD-10-PCS; 2017-01-04)
DX: I25.110 Atherosclerotic heart disease of native coronary artery with unstable angina pectoris (principal); I11.0 Hypertensive heart disease with heart failure; I25.82 Chronic total occlusion of coronary artery; I50.9 Heart failure, unspecified; I25.810 Atherosclerosis of coronary artery bypass graft(s) without angina pectoris; J98.11 Atelectasis; I25.2 Old myocardial infarction; I35.0 Nonrheumatic aortic (valve) stenosis; I44.7 Left bundle-branch block, unspecified; K21.9 Gastro-esophageal reflux disease without esophagitis; Z79.02 Long term (current) use of antithrombotics/antiplatelets; Z79.82 Long term (current) use of aspirin; E78.5 Hyperlipidemia, unspecified; G47.33 Obstructive sleep apnea (adult) (pediatric); Z82.49 Family history of ischemic heart disease and other diseases of the circulatory system; Z85.46 Personal history of malignant neoplasm of prostate; Z87.891 Personal history of nicotine dependence; Z95.3 Presence of xenogenic heart valve; Z95.5 Presence of coronary angioplasty implant and graft; H91.90 Unspecified hearing loss, unspecified ear
CPT/HCPCS: 71010; 80048; 80053; 80061; 82550; 83880; 84484; 85002; 85025; 85027; 85610; 85730; 93005; 93306; 93454; 96360; C1760; C1769; C1893; G0269; J0360; J1644; J2250; J3010; J7030; J7512; Q9967

== ENCOUNTER 2017-03-12 09:21 | Emergency (ER) | payer MEDICARE, OTHER ==
[~2017-03-12] VITALS: Ht 182.9 cm; Wt 85.0 kg
[~2017-03-12 09:21] MED LIST changes: -1-ME1LIQ PO; +AMLO10TA2 PO; -ATEN100T7 PO; +ATEN50TA PO; +CLOP75TA PO; +FISH1200 PO; +GLUC500T4 PO; +ISOS30TA3 PO; -KCL10C PO; -NITR0.4S SL; +PANT40TA3 PO; -PLAV75TA PO; +POTA10CA PO; +PRED2.5T PO; -PROT40TA PO; +ROSU1TAB10 PO; -ROSU40 PO; +TYLE325T PO
[2017-03-12 09:24] VITALS: BP 177/74; PULSE 86; RESP 28; TEMP 98.5; O2SAT 89
[2017-03-12 09:37] VITALS: BP 205/88; PULSE 73; RESP 22; O2SAT 91
[2017-03-12 10:04] LABS: AUTOMATED NEUTROPHIL # 8.1 TH/MM3 (1.8-7.7); BASOPHIL # 0.1 TH/MM3 (0-0.2); BASOPHIL % 0.5 % (0.0-2.0); EOSINOPHIL % 0.3 % (0.0-4.0); HEMATOCRIT 37.3 % (39.0-51.0); HEMO FLAGS DIFF FINAL; LYMPH % 9.7 % (9.0-44.0); MEAN CELL VOLUME 90.4 FL (80.0-100.0); MEAN CORPUSCULAR HEMOGLOBIN 30.1 PG (27.0-34.0); MEAN CORPUSCULAR HGB CONC 33.2 % (32.0-36.0); NEUT % 81.5 % (16.0-70.0); PLATELET COUNT 185 TH/MM3 (150-450); RED BLOOD COUNT 4.13 MIL/MM3 (4.50-5.90); RED CELL DISTRIBUTION WIDTH 14.8 % (11.6-17.2); WHITE BLOOD COUNT 9.9 TH/MM3 (4.0-11.0)
--- NOTE | 2017-03-12 10:14 | RADRPT ---
EXAM DATE/TIME: 03/12/2017 09:51 [facility] COMPARISON: CHEST SINGLE AP, January 02, 2017, 11:50. INDICATIONS : Chest pains with tightness and pressure, short of breath. MEDICAL HISTORY : Myocardial infarction. Congestive heart failure. Chronic obstructive pulmonary disease. SURGICAL HISTORY : CABG. ENCOUNTER: Initial ACUITY: 2 days PAIN SCORE: 6/10 LOCATION: Bilateral chest FINDINGS: Sternal wires from previous bypass are noted. The heart is minimally enlarged. There is mild inters titial edema. There is no evident consolidation or pleural effusion. The portion of the bony skeleto n visualized is unremarkable. CONCLUSION: Mild congestive failure, previous bypass. Americo Herrera MD FACR on March 12, 2017 at 10:11 Board Certified Radiologist. This report was verified electronically.
[2017-03-12] MEDS ORDERED: FUROSEMIDE 20 MG/2 ML VIAL IV PUSH ONE (10:15)
[2017-03-12 10:20] LABS: BICARBONATE 25.9 MEQ/L (21.0-32.0); POTASSIUM 3.8 MEQ/L (3.5-5.1)
[2017-03-12 11:00] VITALS: BP 140/66; PULSE 75; RESP 19; O2SAT 97
--- NOTE | 2017-03-12 11:03 | PD ---
HPI Chief Complaint: Chest Pain Time Seen by Provider: 10:02 Travel History International Travel<30 days: No Contact w/Intl Traveler<30days: No Traveled to known affect area: No History of Present Illness HPI Send 81 year-old woman who presents emergent from complaining of increasing chest pain shortness of breath is been ongoing for the past week. Worse with walking. Worse with any exertion. He is a history of severe coronary artery disease. Recent heart catheter that showed not intervene amenable disease. He also has aortic stenosis status post TAVR done at [facility]. Also previous recorded that he of bovine aortic valve replacement think this is incorrect. History of tobacco use. Does have hypertension hyperlipidemia. He also takes 2.50 g a prednisone daily for arthritis. He's been on diuretics in the past but is not on any diuretics now. He has had some worsening lower extremity edema as well. History Past Medical History Narrative Medical Aortic stenosis status post T aVR CAD, VT, CABG Hypertension on hyperlipidemia History of tobacco use in the past Arthritis, on daily prednisone Social History Alcohol Use: Yes (2 GLASSES WINE DAILY) Tobacco Use: No (QUIT 1973) Allergies-Medications (Allergen,Severity, Reaction): Coded Allergies: Sulfa (Sulfonamide Antibiotics) (Unverified Allergy, Severe, "FLUSHING", ) enalaprilat (Unverified Allergy, Severe, 03/12/17) hydrocodone (Verified Allergy, Severe, rash, 03/12/17) niacin (Unverified Allergy, Severe, 03/12/17) oxycodone (Verified Allergy, Severe, hives, 03/12/17) Reported Meds & Prescriptions Reported Meds & Active Scripts Active Isosorbide Mononitrate ER (Isosorbide Mononitrate) 30 Mg Rupesh 90 Mg PO DAILY@07 Reported Prednisone 2.5 Mg Tab 2.5 Mg PO BID Glucosamine-Chondroitin 500-400 Mg Tab 1 Tab PO BID Potassium Chloride ER (Potassium Chloride) 10 Meq Cap 10 Meq PO DIRECTED Tylenol (Acetaminophen) 325 Mg Tab 1,000 Mg PO TID PRN Rosuvastatin (Rosuvastatin Calcium) 40 Mg Tab 40 Mg PO DAILY Pantoprazole (Pantoprazole Sodium) 40 Mg Tab 40 Mg PO DAILY Fish Oil 1200 mg ([place]-3 Fatty Acids) 1 Cap Cap 1 Tab PO DAILY Clopidogrel (Clopidogrel Bisulfate) 75 Mg Tab 75 Mg PO DAILY Atenolol 50 Mg Tab 50 Mg PO DAILY Aspirin 325 Mg Tab 325 Mg PO HS Amlodipine (Amlodipine Besylate) 10 Mg Tab 10 Mg PO DAILY Review of Systems Except as stated in HPI: all other systems reviewed are Neg Physical Exam Narrative GENERAL: Well-appearing 81 year-old woman, no acute distress. SKIN: Focused skin assessment warm/dry. HEAD: Atraumatic. Normocephalic. EYES: Pupils equal and round. No scleral icterus. No injection or drainage. ENT: No nasal bleeding or discharge. Mucous membranes pink and moist. NECK: Trachea midline. No JVD. CARDIOVASCULAR: Regular rate and rhythm. Soft systolic murmur. RESPIRATORY: No accessory muscle use. Rales at the bases. GASTROINTESTINAL: Abdomen soft, non-tender, nondistended. Hepatic and splenic margins not palpable. MUSCULOSKELETAL: No obvious deformities. Mild edema both lower extremities. NEUROLOGICAL: Awake and alert. No obvious cranial nerve deficits. Motor grossly within normal limits. Normal speech. PSYCHIATRIC: Appropriate mood and affect; insight and judgment normal. Data Data Last Documented VS Vital Signs Date Time Temp Pulse Resp B/P (MAP) Pulse Ox O2 Delivery O2 Flow Rate FiO2 03/12/17 11:00 75 19 140/66 (90) 97 1.00 03/12/17 09:46 Nasal Cannula 03/12/17 09:24 98.5 Orders Orders Electrocardiogram (03/12/17 09:25) Complete Blood Count With Diff (03/12/17 09:25) Basic Metabolic Panel (Bmp) (03/12/17 09:25) Ckmb (Isoenzyme) Profile (03/12/17 09:25) Troponin I (03/12/17 09:25) Chest, Single Ap (03/12/17 09:25) B-Type Natriuretic Peptide (03/12/17 10:11) Furosemide Inj (Lasix Inj) (03/12/17 10:15) Labs Laboratory Tests Test 03/12/17 09:30 White Blood Count 9.9 TH/MM3 Red Blood Count 4.13 MIL/MM3 Hemoglobin 12.4 GM/DL Hematocrit 37.3 % Mean Corpuscular Volume 90.4 FL Mean Corpuscular Hemoglobin 30.1 PG Mean Corpuscular Hemoglobin Concent 33.2 % Red Cell Distribution Width 14.8 % Platelet Count 185 TH/MM3 Mean Platelet Volume 7.7 FL Neutrophils (%) (Auto) 81.5 % Lymphocytes (%) (Auto) 9.7 % Monocytes (%) (Auto) 8.0 % Eosinophils (%) (Auto) 0.3 % Basophils (%) (Auto) 0.5 % Neutrophils # (Auto) 8.1 TH/MM3 Lymphocytes # (Auto) 1.0 TH/MM3 Monocytes # (Auto) 0.8 TH/MM3 Eosinophils # (Auto) 0.0 TH/MM3 Basophils # (Auto) 0.1 TH/MM3 CBC Comment DIFF FINAL Differential Comment Blood Urea Nitrogen 33 MG/DL Creatinine 1.35 MG/DL Random Glucose 128 MG/DL Calcium Level 9.1 MG/DL Sodium Level 137 MEQ/L Potassium Level 3.8 MEQ/L Chloride Level 103 MEQ/L Carbon Dioxide Level 25.9 MEQ/L Anion Gap 8 MEQ/L Estimat Glomerular Filtration Rate 51 ML/MIN Total Creatine Kinase 66 U/L Troponin I 0.04 NG/ML B-Type Natriuretic Peptide 1288 PG/ML [facility] Medical Decision Making Medical Screen Exam Complete: Yes Emergency Medical Condition: Yes Interpretation(s) LABS: CBC remarkable for mild anemia. CMP unremarkable. BNP 1288 My review of EKG: Sinus rhythm at a rate of 75, left bundle branch block, Chest x-ray: Mild congestive failure. Previous bypass. Differential Diagnosis ACS, bowel disease, CHF, volume overload, other Narrative Course Medical decision making 81-year-old man with a little bit lower extremity swelling and Rales in the bases, history of valve disease as well as significant coronary artery disease here with worsening short of breath on exertion and some chest pain, likely coronary disease, or volume overload. He has evidence of extra volume. Is on a diuretic in the past but does not now. We'll check labs, x-ray, give a dose of diuretic, discussed with Dr. Mena. Likely outpatient follow-up. Diagnosis Primary Impression: Weakness Additional Instructions: Take Lasix as prescribed. Follow-up with your primary doctor in the next 2-4 days. Return to the emergency department for any new or worsening symptoms. Med/Other Pt SpecificInfo: Prescription(s) given Scripts Potassium Chloride ER (Potassium Chloride ER) 20 Meq Tab 20 MEQ PO DAILY for Electrolyte Replacement for 7 Days, #7 TAB 0 Refills Prov: Gabriele Salazar MD 03/12/17 Furosemide (Lasix) 20 Mg Tab 20 MG PO DAILY for 7 Days, #7 TAB 0 Refills Prov: Gabriele Salazar MD 03/12/17 Disposition: 01 DISCHARGE HOME Condition: Stable Gabriele Salazar MD Mar 12, 2017 11:03
[2017-03-12] MEDS ORDERED: POTA-163 PO (12:37)
[2017-03-12] MEDS ORDERED: FURO1TAB62 PO (12:37)
[2017-03-12 13:17] VITALS: BP 145/67
--- NOTE | 2017-03-12 21:06 | EKG ---
Date Performed: 03/12/2017 Time Performed: 09:29:01 PTAGE: 81 years EKG: Sinus rhythm WITH SINUS ARRHYTHMIA LEFT BUNDLE BRANCH BLOCK ABNORMAL ECG PREVIOUS TRACING : 01/03/2017 04.03 Compared to prior tracing no significant change DOCTOR: Too Scott Interpretating Date/Time 03/12/2017 21:05:38
== END 2017-03-12 13:19 | disposition home or self-care (01) ==
LOC: NEPE 09:21
DX: R53.1 Weakness (principal); R06.02 Shortness of breath; R07.9 Chest pain, unspecified; I25.10 Atherosclerotic heart disease of native coronary artery without angina pectoris; I10 Essential (primary) hypertension; E78.5 Hyperlipidemia, unspecified; Z87.891 Personal history of nicotine dependence
CPT/HCPCS: 71010; 80048; 82550; 83880; 84484; 85025; 93005; 96374; 99285; J1940

== ENCOUNTER 2017-04-10 14:43 | Observation (INO) | payer OTHER ==
[~2017-04-10] VITALS: Ht 175.3 cm; Wt 85.0 kg
[2017-04-10] VITALS (7 sets, daily range): BP systolic 128–196; BP diastolic 66–97; PULSE 82–98; RESP 16–22; TEMP 97–98.3; O2SAT 94–97
[~2017-04-10 14:43] MED LIST changes: +FURO1TAB62 PO; +POTA-163 PO
--- NOTE | 2017-04-10 14:58 | PD ---
HPI Chief Complaint: Chest Pain Time Seen by Provider: 14:53 Travel History International Travel<30 days: No Contact w/Intl Traveler<30days: No Traveled to known affect area: No History of Present Illness HPI 81-year-old male patient with history of CHF, hypertension, aortic valve replacement, CAD status post CABG, presents to the ER today because he has been short of breath and having intermittent chest discomfort especially worse in the afternoons and evenings. He states he was having trouble last few nights sleeping because of it. He states he was constantly up-and-down. 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 He states that he usually gets better when he gets nitroglycerin. He denies any fevers, vomiting, or any other symptoms. Modifying Factors: Worse at night and with walking, better with nitroglycerin Associated Signs & Symptoms: Chest discomfort, shortness of breath Risk Factors: CHF, cardiac history PFSH Past Medical History Hx Anticoagulant Therapy: Yes Arthritis: Yes Asthma: No Autoimmune Disease: No Heart Rhythm Problems: Yes Cancer: Yes Cardiovascular Problems: Yes High Cholesterol: No Chemotherapy: Yes Chest Pain: Yes Congestive Heart Failure: Yes COPD: No Cerebrovascular Accident: No Diabetes: No Diminished Hearing: Yes (BILAT HEARING AIDS) Endocrine: No Gastrointestinal Disorders: No GERD: Yes Genitourinary: No Headaches: No Hiatal Hernia: No Heparin Induced Thrombocytopen: No Hypertension: Yes Immune Disorder: No Implanted Vascular Access Dvce: Yes (AORTIC VALVE BOVINE) Musculoskeletal: No Neurologic: No Psychiatric: No Reproductive: No Respiratory: Yes Migraines: No Radiation Therapy: No Seizures: No Sickle Cell Disease: No Sleep Apnea: No Thyroid Disease: No Ulcer: No Influenza Vaccination: No ?: Not Past Surgical History Abdominal Surgery: No AICD: No Appendectomy: Yes (194) Body Medical Devices: PIN IN LEFT THUMB Cardiac Surgery: Yes (aorta valve) Coronary Artery Bypass Graft: Yes (3 VESSEL AUGUST 2007) Ear Surgery: No Endocrine Surgery: No Genitourinary Surgery: Yes (prostate removal ) Gynecologic Surgery: No Insulin Pump: No Joint Replacement: No Neurologic Surgery: No Oral Surgery: No Pacemaker: No Prostatectomy: Yes (1998) Thoracic Surgery: No Other Surgery: Yes Social History Alcohol Use: Yes (2 GLASSES WINE DAILY) Tobacco Use: No (QUIT 1973) Substance Use: No Allergies-Medications (Allergen,Severity, Reaction): Coded Allergies: Sulfa (Sulfonamide Antibiotics) (Unverified Allergy, Severe, "FLUSHING", 04/10/17) enalaprilat (Unverified Allergy, Severe, 04/10/17) hydrocodone (Verified Allergy, Severe, rash, 04/10/17) niacin (Unverified Allergy, Severe, 04/10/17) oxycodone (Verified Allergy, Severe, hives, 04/10/17) Reported Meds & Prescriptions Reported Meds & Active Scripts Active Potassium Chloride ER (Potassium Chloride) 20 Meq Tab 20 Meq PO DAILY 7 Days Lasix (Furosemide) 20 Mg Tab 20 Mg PO DAILY 7 Days Isosorbide Mononitrate ER (Isosorbide Mononitrate) 30 Mg Rupesh 90 Mg PO DAILY@07 Reported Nitrostat SL (Nitroglycerin) 0.4 Mg Subl 0.4 Mg SL DIRECTED PRN 1 tablet under the tongue as needed for chest pain. Repeat every 5 minutes for a total of 3 DOSES or call 911 if NO relief. Afrin Nasal [place] (Oxymetazoline HCl) 0.05% [place] 2-3 [place] EACH NARE Q12H PRN Carbamazepine 200 Mg Tab 200 Mg PO DAILY Atenolol/Chlorthalidone 50-25 mg (Atenolol & Chlorthalidone) 50 Mg-25 Mg Tab 1 Tab PO DAILY Prednisone 2.5 Mg Tab 2.5 Mg PO BID Glucosamine-Chondroitin 500-400 Mg Tab 1 Tab PO BID Tylenol (Acetaminophen) 325 Mg Tab 1,000 Mg PO TID PRN Rosuvastatin (Rosuvastatin Calcium) 40 Mg Tab 40 Mg PO DAILY Pantoprazole (Pantoprazole Sodium) 40 Mg Tab 40 Mg PO DAILY Fish Oil 1200 mg ([place]-3 Fatty Acids) 1 Cap Cap 1 Tab PO DAILY Clopidogrel (Clopidogrel Bisulfate) 75 Mg Tab 75 Mg PO DAILY Aspirin 325 Mg Tab 325 Mg PO HS Amlodipine (Amlodipine Besylate) 10 Mg Tab 10 Mg PO DAILY Review of Systems Except as stated in HPI: all other systems reviewed are Neg Physical Exam Narrative GENERAL: Well-developed elderly white male patient currently in mild respiratory distress on evaluation. Awake and oriented 3. SKIN: Focused skin assessment warm/dry. HEAD: Atraumatic. Normocephalic. EYES: Pupils equal and round. No scleral icterus. No injection or drainage. ENT: No nasal bleeding or discharge. Mucous membranes pink and moist. NECK: Trachea midline. No JVD. CARDIOVASCULAR: Regular rate and rhythm. No murmur appreciated. RESPIRATORY: Moderate accessory muscle use. Bibasilar rale. Breath sounds equal bilaterally. GASTROINTESTINAL: Abdomen soft, non-tender, nondistended. Hepatic and splenic margins not palpable. MUSCULOSKELETAL: No obvious deformities. No clubbing. No cyanosis. No edema. NEUROLOGICAL: Awake and alert. No obvious cranial nerve deficits. Motor grossly within normal limits. Normal speech. PSYCHIATRIC: Appropriate mood and affect; insight and judgment normal. Data Data Last Documented VS Vital Signs Date Time Temp Pulse Resp B/P (MAP) Pulse Ox O2 Delivery O2 Flow Rate FiO2 04/10/17 15:55 86 18 128/66 (86) 95 Nasal Cannula 2.00 04/10/17 14:47 98.3 Orders Orders Complete Blood Count With Diff (04/10/17 14:53) Comprehensive Metabolic Panel (04/10/17 14:53) B-Type Natriuretic Peptide (04/10/17 14:53) Act Partial Throm Time (Ptt) (04/10/17 14:53) Prothrombin Time / Inr (Pt) (04/10/17 14:53) Ckmb (Isoenzyme) Profile (04/10/17 14:53) Troponin I (04/10/17 14:53) Iv Access Insert/Monitor (04/10/17 14:53) Electrocardiogram (04/10/17 14:53) Ecg Monitoring (04/10/17 14:53) Oximetry (04/10/17 14:53) Oxygen Administration (04/10/17 14:53) Chest, Single Ap (04/10/17 14:53) Sodium Chloride 0.9% Flush (Ns Flush) (04/10/17 15:00) Nitroglycerin 2% Oint (Nitroglycerin 2% (04/10/17 15:00) Furosemide Inj (Lasix Inj) (04/10/17 16:00) Admit Order (Ed Use Only) (04/10/17 16:32) Labs Laboratory Tests Test 04/10/17 15:00 White Blood Count 6.3 TH/MM3 Red Blood Count 4.57 MIL/MM3 Hemoglobin 13.5 GM/DL Hematocrit 40.6 % Mean Corpuscular Volume 88.8 FL Mean Corpuscular Hemoglobin 29.5 PG Mean Corpuscular Hemoglobin Concent 33.2 % Red Cell Distribution Width 15.0 % Platelet Count 144 TH/MM3 Mean Platelet Volume 7.5 FL Neutrophils (%) (Auto) 79.8 % Lymphocytes (%) (Auto) 15.2 % Monocytes (%) (Auto) 4.3 % Eosinophils (%) (Auto) 0.2 % Basophils (%) (Auto) 0.5 % Neutrophils # (Auto) 5.0 TH/MM3 Lymphocytes # (Auto) 1.0 TH/MM3 Monocytes # (Auto) 0.3 TH/MM3 Eosinophils # (Auto) 0.0 TH/MM3 Basophils # (Auto) 0.0 TH/MM3 CBC Comment DIFF FINAL Differential Comment Prothrombin Time 11.5 SEC Prothromb Time International Ratio 1.0 RATIO Activated Partial Thromboplast Time 27.7 SEC Blood Urea Nitrogen 26 MG/DL Creatinine 1.10 MG/DL Random Glucose 133 MG/DL Total Protein 7.8 GM/DL Albumin 3.7 GM/DL Calcium Level 8.6 MG/DL Alkaline Phosphatase 53 U/L Aspartate Amino Transf (AST/SGOT) 12 U/L Alanine Aminotransferase (ALT/SGPT) 22 U/L Total Bilirubin 0.5 MG/DL Sodium Level 134 MEQ/L Potassium Level 4.2 MEQ/L Chloride Level 101 MEQ/L Carbon Dioxide Level 25.0 MEQ/L Anion Gap 8 MEQ/L Estimat Glomerular Filtration Rate 64 ML/MIN Total Creatine Kinase 34 U/L Troponin I 0.03 NG/ML B-Type Natriuretic Peptide 1432 PG/ML MDM Medical Decision Making Medical Screen Exam Complete: Yes Emergency Medical Condition: Yes Medical Record Reviewed: Yes Interpretation(s) EKG shows sinus tachycardia rate 100 bpm with a left bundle branch block pattern. Laboratory Tests Test 04/10/17 15:00 Platelet Count 144 TH/MM3 (150-450) Neutrophils (%) (Auto) 79.8 % (16.0-70.0) Blood Urea Nitrogen 26 MG/DL (7-18) Random Glucose 133 MG/DL (74-106) Aspartate Amino Transf (AST/SGOT) 12 U/L (15-37) Sodium Level 134 MEQ/L (136-145) Estimat Glomerular Filtration Rate 64 ML/MIN (>89) Total Creatine Kinase 34 U/L (39-308) B-Type Natriuretic Peptide 1432 PG/ML (0-100) Last 24 hours Impressions Chest X-Ray 04/10/17 1453 Signed Impressions: Service Date/Time: , April 10, 2017 15:03 - CONCLUSION: 1. Mild cardiomegaly with interstitial prominence suggesting interstitial pulmonary edema. Kulwant Liu Jr., MD Differential Diagnosis Chest discomfort and shortness of breath, dyspnea on exertion: CHF exacerbation versus pleural effusion versus pneumonia versus hypertensive urgency versus ACS Narrative Course EKG did not show any signs of changes. Chest x-ray and BNP indicative of underlying CHF. Patient had been given nitroglycerin in the ER was also given Lasix. At this point, my plan would be to admit him for further treatment of CHF exacerbation. Case is discussed with Dr. Zendejas for admission. Diagnosis Primary Impression: CHF (congestive heart failure) Admitting Information Admitting Physician Requests: Admit Scott Balderrama MD Apr 10, 2017 14:58
[2017-04-10] MEDS ORDERED: SODIUM CHLORIDE 0.9% FLUSH 10 ML FLUSH IVF PRN (15:00)
[2017-04-10] MEDS ORDERED: NITROGLYCERIN 2% OINT 1 GM PACKET TOPICAL ONE (15:00)
[2017-04-10] MEDS ORDERED: ATEN50TA7 PO (15:08)
[2017-04-10] MEDS ORDERED: AFRI0.052 EACH NARE (15:10)
[2017-04-10] MEDS ORDERED: NITR0.4S SL (15:10)
[2017-04-10] MEDS ORDERED: CARB200T PO (15:10)
[2017-04-10 15:24] LABS: BASOPHIL % 0.5 % (0.0-2.0); EOSINOPHIL % 0.2 % (0.0-4.0); HEMATOCRIT 40.6 % (39.0-51.0); HEMO FLAGS DIFF FINAL; LYMPH % 15.2 % (9.0-44.0); MEAN CELL VOLUME 88.8 FL (80.0-100.0); MEAN CORPUSCULAR HEMOGLOBIN 29.5 PG (27.0-34.0); MEAN CORPUSCULAR HGB CONC 33.2 % (32.0-36.0); MONO % 4.3 % (0.0-8.0); NEUT % 79.8 % (16.0-70.0); PLATELET COUNT 144 TH/MM3 (150-450); RED BLOOD COUNT 4.57 MIL/MM3 (4.50-5.90); WHITE BLOOD COUNT 6.3 TH/MM3 (4.0-11.0)
[2017-04-10 15:26] LABS: CHLORIDE 101 MEQ/L (98-107); POTASSIUM 4.2 MEQ/L (3.5-5.1); SODIUM (NA) 134 MEQ/L (136-145)
[2017-04-10 15:30] LABS: ANION GAP 8 MEQ/L (5-15); BLOOD UREA NITROGEN 26 MG/DL (7-18)
--- NOTE | 2017-04-10 15:31 | RADRPT ---
EXAM DATE/TIME: 04/10/2017 15:03 [facility] COMPARISON: CHEST SINGLE AP, March 12, 2017, 9:51. INDICATIONS : Short of breath for several days. MEDICAL HISTORY : Myocardial infarction. Congestive heart failure. Chronic obstructive pulmonary disease. SURGICAL HISTORY : CABG. ENCOUNTER: Initial ACUITY: 4 - 6 days PAIN SCORE: 0/10 LOCATION: Bilateral chest FINDINGS: Single portable film of the chest shows mild cardiomegaly. A stent mounted prosthetic heart valve obs erved. Median sternotomy wires. Interstitial prominence throughout the lungs bilaterally. Low lung vo lumes noted. No effusions. CONCLUSION: 1. Mild cardiomegaly with interstitial prominence suggesting interstitial pulmonary edema. Kulwant Liu Jr., MD on April 10, 2017 at 15:29 Board Certified Radiologist. This report was verified electronically.
[2017-04-10 15:33] LABS: ALT (GPT) 22 U/L (12-78); APTT (PATIENT) 27.7 SEC (24.3-30.1); AST (GOT) 12 U/L (15-37); GLOMERULAR FILTRATION RATE 64 ML/MIN (>89); PROTHROMBIN TIME - PATIENT 11.5 SEC (9.8-11.6)
[2017-04-10 15:34] LABS: TOTAL BILIRUBIN ADULT 0.5 MG/DL (0.2-1.0)
[2017-04-10 15:36] LABS: ALKALINE PHOSPHATASE 53 U/L (45-117)
[2017-04-10 15:55] LABS: CREATINE KINASE 34 U/L (39-308)
[2017-04-10] MEDS ORDERED: FUROSEMIDE 40 MG/4 ML VIAL IV PUSH ONE (16:00)
[2017-04-10] MEDS ORDERED: SODIUM CHLORIDE 0.9% FLUSH 10 ML FLUSH IV FLUSH PRN (16:45)
[2017-04-10] MEDS ORDERED: MAGNESIUM HYDROXIDE SUSP 30 ML CUP PO PRN (16:45)
[2017-04-10] MEDS ORDERED: NALOXONE HCL 0.4 MG/ML AMP IV PUSH PRN (16:45)
[2017-04-10] MEDS ORDERED: ONDANSETRON HCL 4 MG/2 ML VIAL IVP PRN (16:45)
--- NOTE | 2017-04-10 16:56 | HHI.HP ---
[facility] Primary Care Physician Drea Bowman Do, MD Admission Diagnosis CHF exacerbation Diagnoses: (1) CHF (congestive heart failure) (2) Hypertension Travel History International Travel<30 Days: No Contact w/Intl Traveler <30 Da: No Traveled to Known Affected Are: No Review of Systems Constitutional: DENIES: Fatigue, Fever, Chills, Night Sweats Eyes: DENIES: Blurred vision, Diplopia, Eye inflammation, Eye pain Ears, nose, mouth, throat: DENIES: Tinnitus, Hearing loss, Vertigo, Nasal discharge Respiratory: COMPLAINS OF: Shortness of breath, DENIES: Apneas, Cough, Snoring , Wheezing Cardiovascular: COMPLAINS OF: Chest pain Gastrointestinal: DENIES: Abdominal pain, Black stools, Bloody stools Musculoskeletal: DENIES: Joint pain, Muscle aches, Stiffness Integumentary: DENIES: Abnormal pigmentation, Nail changes, Pruritus, Rash Hematologic/lymphatic: DENIES: Bruising, Lymphadenopathy Immunologic/allergic: DENIES: Eczema, Urticaria Neurologic: DENIES: Abnormal gait, Headache, Localized weakness, Paresthesias Psychiatric: DENIES: Anxiety, Confusion, Hallucinations Past Family Social History Past Medical History CHF CAD Cardiac Valve Disease Osteoarthritis Past Surgical History Aortic Valve Replacement Appendectomy CABGx3 Prostatectomy Left Thumb Pin Reported Medications Reported Meds & Active Scripts Active Potassium Chloride ER (Potassium Chloride) 20 Meq Tab 20 Meq PO DAILY 7 Days Lasix (Furosemide) 20 Mg Tab 20 Mg PO DAILY 7 Days Isosorbide Mononitrate ER (Isosorbide Mononitrate) 30 Mg Rupesh 90 Mg PO DAILY@07 Reported Nitrostat SL (Nitroglycerin) 0.4 Mg Subl 0.4 Mg SL DIRECTED PRN 1 tablet under the tongue as needed for chest pain. Repeat every 5 minutes for a total of 3 DOSES or call 911 if NO relief. Afrin Nasal [place] (Oxymetazoline HCl) 0.05% [place] 2-3 [place] EACH NARE Q12H PRN Carbamazepine 200 Mg Tab 200 Mg PO DAILY Atenolol/Chlorthalidone 50-25 mg (Atenolol & Chlorthalidone) 50 Mg-25 Mg Tab 1 Tab PO DAILY Prednisone 2.5 Mg Tab 2.5 Mg PO BID Glucosamine-Chondroitin 500-400 Mg Tab 1 Tab PO BID Tylenol (Acetaminophen) 325 Mg Tab 1,000 Mg PO TID PRN Rosuvastatin (Rosuvastatin Calcium) 40 Mg Tab 40 Mg PO DAILY Pantoprazole (Pantoprazole Sodium) 40 Mg Tab 40 Mg PO DAILY Fish Oil 1200 mg ([place]-3 Fatty Acids) 1 Cap Cap 1 Tab PO DAILY Clopidogrel (Clopidogrel Bisulfate) 75 Mg Tab 75 Mg PO DAILY Aspirin 325 Mg Tab 325 Mg PO HS Amlodipine (Amlodipine Besylate) 10 Mg Tab 10 Mg PO DAILY Allergies: Coded Allergies: Sulfa (Sulfonamide Antibiotics) (Unverified Allergy, Severe, "FLUSHING", 04/10/17) enalaprilat (Unverified Allergy, Severe, 04/10/17) hydrocodone (Verified Allergy, Severe, rash, 04/10/17) niacin (Unverified Allergy, Severe, 04/10/17) oxycodone (Verified Allergy, Severe, hives, 04/10/17) Active Ordered Medications Administered Medications Medications (Trade) Dose Ordered Sig/Dwain Route PRN Reason Start Time Stop Time Status Last Admin Dose Admin Sodium Chloride (NS Flush) 2 ml UNSCH PRN IVF FLUSH AFTER USING IV ACCESS 04/10/17 15:00 04/10/17 15:16 Family History 2 alcohol drinks nightly Past history of smoking, quit in 1973 No illicit drug abuse Physical Exam Vital Signs Vital Signs Date Time Temp Pulse Resp B/P (MAP) Pulse Ox O2 Delivery O2 Flow Rate FiO2 04/10/17 16:47 82 20 167/83 (111) 95 Nasal Cannula 2.00 04/10/17 15:55 86 18 128/66 (86) 95 Nasal Cannula 2.00 04/10/17 15:10 85 22 140/73 (95) 95 Nasal Cannula 2.00 04/10/17 15:03 96 Nasal Cannula 2.00 04/10/17 14:53 94 22 96 Nasal Cannula 2.00 04/10/17 14:47 98.3 96 20 196/94 (128) 96 Physical Exam GENERAL: This is a well-nourished, well-developed patient, in no apparent distress. SKIN: No rashes, ecchymoses or lesions. Cool and dry. HEAD: Atraumatic. Normocephalic. No temporal or scalp tenderness. EYES: Pupils equal round and reactive. Extraocular motions intact. No scleral icterus. No injection or drainage. ENT: Nose without bleeding, purulent drainage or septal hematoma. Throat without erythema, tonsillar hypertrophy or exudate. Uvula midline. Airway patent. NECK: Trachea midline. No JVD or lymphadenopathy. Supple, nontender, no meningeal signs. CARDIOVASCULAR: Regular rate and rhythm without murmurs, gallops, or rubs. RESPIRATORY: Clear to auscultation. Breath sounds equal bilaterally. No wheezes , rales, or rhonchi. GASTROINTESTINAL: Abdomen soft, non-tender, nondistended. No hepato-splenomegaly , or palpable masses. No guarding. MUSCULOSKELETAL: Extremities without clubbing, cyanosis, or edema. No joint tenderness, effusion, or edema noted. No calf tenderness. Negative Homans sign bilaterally. NEUROLOGICAL: Awake and alert. Cranial nerves II through XII intact. Motor and sensory grossly within normal limits. Five out of 5 muscle strength in all muscle groups. Normal speech. Laboratory Laboratory Tests Test 04/10/17 15:00 White Blood Count 6.3 Red Blood Count 4.57 Hemoglobin 13.5 Hematocrit 40.6 Mean Corpuscular Volume 88.8 Mean Corpuscular Hemoglobin 29.5 Mean Corpuscular Hemoglobin Concent 33.2 Red Cell Distribution Width 15.0 Platelet Count 144 Mean Platelet Volume 7.5 Neutrophils (%) (Auto) 79.8 Lymphocytes (%) (Auto) 15.2 Monocytes (%) (Auto) 4.3 Eosinophils (%) (Auto) 0.2 Basophils (%) (Auto) 0.5 Neutrophils # (Auto) 5.0 Lymphocytes # (Auto) 1.0 Monocytes # (Auto) 0.3 Eosinophils # (Auto) 0.0 Basophils # (Auto) 0.0 CBC Comment DIFF FINAL Differential Comment Prothrombin Time 11.5 Prothromb Time International Ratio 1.0 Activated Partial Thromboplast Time 27.7 Blood Urea Nitrogen 26 Creatinine 1.10 Random Glucose 133 Total Protein 7.8 Albumin 3.7 Calcium Level 8.6 Alkaline Phosphatase 53 Aspartate Amino Transf (AST/SGOT) 12 Alanine Aminotransferase (ALT/SGPT) 22 Total Bilirubin 0.5 Sodium Level 134 Potassium Level 4.2 Chloride Level 101 Carbon Dioxide Level 25.0 Anion Gap 8 Estimat Glomerular Filtration Rate 64 Total Creatine Kinase 34 Troponin I 0.03 B-Type Natriuretic Peptide 1432 Result Diagram: 04/10/17 1500 04/10/17 1500 [place] VTE Risk Assessment [place] VTE Risk Assessment: Mod/High Risk (score >= 2) Caprini Risk Assessment Model Point Value = 1 Point Value = 2 Point Value = 3 Point Value = 5 Age 41-60 Minor surgery BMI > 25 kg/m2 Swollen legs Varicose veins or History of unexplained or recurrent spontaneous Oral contraceptives or hormone replacement Sepsis (< 1 month) Serious lung disease, including pneumonia (< 1 month) Abnormal pulmonary function Acute myocardial infarction Congestive heart failure (< 1 month) History of inflammatory bowel disease Medical patient at bed rest Age 61-74 Arthroscopic surgery Major open surgery (> 45 min) Laparoscopic surgery (> 45 min) Malignancy Confined to bed (> 72 hours) Immobilizing plaster cast Central venous access Age >= 75 History of VTE Family history of VTE Factor V Leiden Prothrombin [id number] Lupus anticoagulant Anticardiolipin antibodies Elevated serum homocysteine Heparin-induced thrombocytopenia Other congenital or acquired thrombophilia Stroke (< 1 month) Elective arthroplasty Hip, pelvis, or leg fracture Acute spinal cord injury (< 1 month) Prophylaxis Regimen Total Risk Factor Score Risk Level Prophylaxis Regimen 0-1 Low Early ambulation 2 Moderate Order ONE of the following: *Sequential Compression Device (SCD) *Heparin 5000 units SQ BID 3-4 Higher Order ONE of the following medications: *Heparin 5000 units SQ TID *Enoxaparin/Lovenox 40 mg SQ daily (WT < 150 kg, CrCl > 30 mL/min) *Enoxaparin/Lovenox 30 mg SQ daily (WT < 150 kg, CrCl > 10-29 mL/min) *Enoxaparin/Lovenox 30 mg SQ BID (WT < 150 kg, CrCl > 30 mL/min) AND/OR *Sequential Compression Device (SCD) 5 or more Highest Order ONE of the following medications: *Heparin 5000 units SQ TID (Preferred with Epidurals) *Enoxaparin/Lovenox 40 mg SQ daily (WT < 150 kg, CrCl > 30 mL/min) *Enoxaparin/Lovenox 30 mg SQ daily (WT < 150 kg, CrCl > 10-29 mL/min) *Enoxaparin/Lovenox 30 mg SQ BID (WT < 150 kg, CrCl > 30 mL/min) AND *Sequential Compression Device (SCD) Assessment and Plan Problem List: (1) CHF exacerbation ICD Code: I50.9 - Heart failure, unspecified (2) Hypertensive urgency ICD Code: I16.0 - Hypertensive urgency (3) CHF (congestive heart failure) ICD Code: I50.9 - Heart failure, unspecified Status: Acute (4) Hypertension ICD Code: I10 - Hypertension Status: Chronic (5) History of coronary artery bypass surgery ICD Code: Z95.1 - History of coronary artery bypass surgery Status: Acute Assessment and Plan Assessment and Plan 81 year old male CHF CAD Cardiac Valve Disease Osteoarthritis Cedrick Zendejas MD Apr 10, 2017 16:56
[2017-04-10] MEDS ORDERED: OXYMETAZOLINE HCL 0.05% 15 ML NASAL SPRAY EACH NARE PRN (18:00)
--- NOTE | 2017-04-10 18:07 | HHI.HP ---
[facility] Service [facility] Primary Care Physician Drea Bowman Do, MD Admission Diagnosis CHF exacerbation Diagnoses: (1) CHF exacerbation Diagnosis: Principal (2) Hypertensive urgency Diagnosis: Principal (3) CHF (congestive heart failure) Diagnosis: Principal (4) Hypertension Diagnosis: Principal (5) History of coronary artery bypass surgery Diagnosis: Principal (6) Chest pain Diagnosis: Principal (7) Elevated brain natriuretic peptide (BNP) level Diagnosis: Principal (8) Unstable angina Diagnosis: Principal (9) Hyperlipidemia Diagnosis: Principal Travel History International Travel<30 Days: No Contact w/Intl Traveler <30 Da: No Traveled to Known Affected Are: No History of Present Illness Mr. Serna is an 81-year-old male. He came into the emergency department today because of dyspnea and chest pain. At baseline he has recurrent angina with exertion and dyspnea with exertion. Typically if he rests both of these go away quickly and typically he will use nitroglycerin on an as-needed basis and has resolution of his chest pain with this. Today he tried both of these and did not have relief so he came into the emergency department. He does not that over the past few days she's had increased dyspnea with exertion compared to his baseline. BNP is found to be elevated. CHF exacerbation is determined as an etiology. At baseline he has coronary artery disease, CHF, and an artificial bovine aortic valve. He has had three-vessel CABG and stents in the past. He follows with Dr. Mena as an outpatient. When seen in the ER he is not having chest pain. He still has some shortness of breath, especially when talking for long periods of time. No other complaints. No nausea or vomiting. No fevers or cough. Review of Systems Constitutional: DENIES: Diaphoretic episodes, Fever, Chills, Night Sweats Eyes: DENIES: Blurred vision, Diplopia, Eye inflammation, Eye pain Ears, nose, mouth, throat: DENIES: Tinnitus, Hearing loss, Vertigo Respiratory: COMPLAINS OF: Shortness of breath, DENIES: Cough, Wheezing Cardiovascular: COMPLAINS OF: Chest pain, DENIES: Palpitations, Syncope Gastrointestinal: DENIES: Abdominal pain, Black stools, Bloody stools Musculoskeletal: DENIES: Joint pain, Muscle aches, Stiffness Integumentary: DENIES: Abnormal pigmentation, Nail changes, Pruritus Hematologic/lymphatic: DENIES: Bruising, Lymphadenopathy Immunologic/allergic: DENIES: Eczema, Urticaria Neurologic: DENIES: Abnormal gait, Headache, Paresthesias Psychiatric: DENIES: Anxiety, Confusion, Hallucinations Past Family Social History Past Medical History CHF CAD Cardiac Valve Disease Osteoarthritis Past Surgical History Aortic Valve Replacement Appendectomy CABGx3 Prostatectomy Left Thumb Pin Reported Medications Reported Meds & Active Scripts Active Potassium Chloride ER (Potassium Chloride) 20 Meq Tab 20 Meq PO DAILY 7 Days Lasix (Furosemide) 20 Mg Tab 20 Mg PO DAILY 7 Days Isosorbide Mononitrate ER (Isosorbide Mononitrate) 30 Mg Rupesh 90 Mg PO DAILY@07 Reported Nitrostat SL (Nitroglycerin) 0.4 Mg Subl 0.4 Mg SL DIRECTED PRN 1 tablet under the tongue as needed for chest pain. Repeat every 5 minutes for a total of 3 DOSES or call 911 if NO relief. Afrin Nasal [place] (Oxymetazoline HCl) 0.05% [place] 2-3 [place] EACH NARE Q12H PRN Carbamazepine 200 Mg Tab 200 Mg PO DAILY Atenolol/Chlorthalidone 50-25 mg (Atenolol & Chlorthalidone) 50 Mg-25 Mg Tab 1 Tab PO DAILY Prednisone 2.5 Mg Tab 2.5 Mg PO BID Glucosamine-Chondroitin 500-400 Mg Tab 1 Tab PO BID Tylenol (Acetaminophen) 325 Mg Tab 1,000 Mg PO TID PRN Rosuvastatin (Rosuvastatin Calcium) 40 Mg Tab 40 Mg PO DAILY Pantoprazole (Pantoprazole Sodium) 40 Mg Tab 40 Mg PO DAILY Fish Oil 1200 mg ([place]-3 Fatty Acids) 1 Cap Cap 1 Tab PO DAILY Clopidogrel (Clopidogrel Bisulfate) 75 Mg Tab 75 Mg PO DAILY Aspirin 325 Mg Tab 325 Mg PO HS Amlodipine (Amlodipine Besylate) 10 Mg Tab 10 Mg PO DAILY Allergies: Coded Allergies: Sulfa (Sulfonamide Antibiotics) (Unverified Allergy, Severe, "FLUSHING", 04/10/17) enalaprilat (Unverified Allergy, Severe, 04/10/17) hydrocodone (Verified Allergy, Severe, rash, 04/10/17) niacin (Unverified Allergy, Severe, 04/10/17) oxycodone (Verified Allergy, Severe, hives, 04/10/17) Active Ordered Medications Administered Medications Medications (Trade) Dose Ordered Sig/Dwain Route PRN Reason Start Time Stop Time Status Last Admin Dose Admin Sodium Chloride (NS Flush) 2 ml UNSCH PRN IVF FLUSH AFTER USING IV ACCESS 04/10/17 15:00 04/10/17 15:16 Family History 2 alcohol drinks nightly Past history of smoking, quit in 1973 No illicit drug abuse Social History Coronary artery disease in mother Physical Exam Vital Signs Vital Signs Date Time Temp Pulse Resp B/P (MAP) Pulse Ox O2 Delivery O2 Flow Rate FiO2 04/10/17 17:39 04/10/17 17:30 82 20 145/79 (101) 95 Nasal Cannula 2.00 04/10/17 16:47 82 20 167/83 (111) 95 Nasal Cannula 2.00 04/10/17 15:55 86 18 128/66 (86) 95 Nasal Cannula 2.00 04/10/17 15:10 85 22 140/73 (95) 95 Nasal Cannula 2.00 04/10/17 15:03 96 Nasal Cannula 2.00 04/10/17 14:53 94 22 96 Nasal Cannula 2.00 04/10/17 14:47 98.3 96 20 196/94 (128) 96 Physical Exam GENERAL: NAD, A&Ox3 HEAD: Normocephalic. NECK: Supple, trachea midline. No lymphadenopathy. EYES: No scleral icterus. No injection or drainage. CARDIOVASCULAR: Regular rate and rhythm without murmurs, gallops, or rubs. RESPIRATORY: Breath sounds equal bilaterally. No accessory muscle use. Audible pulmonary edema bilaterally with crackles heard from midlung to bases. GASTROINTESTINAL: Abdomen soft, non-tender, nondistended. MUSCULOSKELETAL: No cyanosis, or edema. SKIN: Warm and dry. NEURO: No focal neurological deficitis. Laboratory Laboratory Tests Test 04/10/17 15:00 White Blood Count 6.3 Red Blood Count 4.57 Hemoglobin 13.5 Hematocrit 40.6 Mean Corpuscular Volume 88.8 Mean Corpuscular Hemoglobin 29.5 Mean Corpuscular Hemoglobin Concent 33.2 Red Cell Distribution Width 15.0 Platelet Count 144 Mean Platelet Volume 7.5 Neutrophils (%) (Auto) 79.8 Lymphocytes (%) (Auto) 15.2 Monocytes (%) (Auto) 4.3 Eosinophils (%) (Auto) 0.2 Basophils (%) (Auto) 0.5 Neutrophils # (Auto) 5.0 Lymphocytes # (Auto) 1.0 Monocytes # (Auto) 0.3 Eosinophils # (Auto) 0.0 Basophils # (Auto) 0.0 CBC Comment DIFF FINAL Differential Comment Prothrombin Time 11.5 Prothromb Time International Ratio 1.0 Activated Partial Thromboplast Time 27.7 Blood Urea Nitrogen 26 Creatinine 1.10 Random Glucose 133 Total Protein 7.8 Albumin 3.7 Calcium Level 8.6 Alkaline Phosphatase 53 Aspartate Amino Transf (AST/SGOT) 12 Alanine Aminotransferase (ALT/SGPT) 22 Total Bilirubin 0.5 Sodium Level 134 Potassium Level 4.2 Chloride Level 101 Carbon Dioxide Level 25.0 Anion Gap 8 Estimat Glomerular Filtration Rate 64 Total Creatine Kinase 34 Troponin I 0.03 B-Type Natriuretic Peptide 1432 Result Diagram: 04/10/17 1500 04/10/17 1500 Imaging Last Impressions Chest X-Ray 04/10/17 1453 Signed Impressions: Service Date/Time: , April 10, 2017 15:03 - CONCLUSION: 1. Mild cardiomegaly with interstitial prominence suggesting interstitial pulmonary edema. Kulwant Liu Jr., MD [place] VTE Risk Assessment [place] VTE Risk Assessment: Mod/High Risk (score >= 2) Caprini Risk Assessment Model Point Value = 1 Point Value = 2 Point Value = 3 Point Value = 5 Age 41-60 Minor surgery BMI > 25 kg/m2 Swollen legs Varicose veins or History of unexplained or recurrent spontaneous Oral contraceptives or hormone replacement Sepsis (< 1 month) Serious lung disease, including pneumonia (< 1 month) Abnormal pulmonary function Acute myocardial infarction Congestive heart failure (< 1 month) History of inflammatory bowel disease Medical patient at bed rest Age 61-74 Arthroscopic surgery Major open surgery (> 45 min) Laparoscopic surgery (> 45 min) Malignancy Confined to bed (> 72 hours) Immobilizing plaster cast Central venous access Age >= 75 History of VTE Family history of VTE Factor V Leiden Prothrombin [id number] Lupus anticoagulant Anticardiolipin antibodies Elevated serum homocysteine Heparin-induced thrombocytopenia Other congenital or acquired thrombophilia Stroke (< 1 month) Elective arthroplasty Hip, pelvis, or leg fracture Acute spinal cord injury (< 1 month) Prophylaxis Regimen Total Risk Factor Score Risk Level Prophylaxis Regimen 0-1 Low Early ambulation 2 Moderate Order ONE of the following: *Sequential Compression Device (SCD) *Heparin 5000 units SQ BID 3-4 Higher Order ONE of the following medications: *Heparin 5000 units SQ TID *Enoxaparin/Lovenox 40 mg SQ daily (WT < 150 kg, CrCl > 30 mL/min) *Enoxaparin/Lovenox 30 mg SQ daily (WT < 150 kg, CrCl > 10-29 mL/min) *Enoxaparin/Lovenox 30 mg SQ BID (WT < 150 kg, CrCl > 30 mL/min) AND/OR *Sequential Compression Device (SCD) 5 or more Highest Order ONE of the following medications: *Heparin 5000 units SQ TID (Preferred with Epidurals) *Enoxaparin/Lovenox 40 mg SQ daily (WT < 150 kg, CrCl > 30 mL/min) *Enoxaparin/Lovenox 30 mg SQ daily (WT < 150 kg, CrCl > 10-29 mL/min) *Enoxaparin/Lovenox 30 mg SQ BID (WT < 150 kg, CrCl > 30 mL/min) AND *Sequential Compression Device (SCD) Assessment and Plan Problem List: (1) CHF exacerbation ICD Code: I50.9 - Heart failure, unspecified (2) Hypertensive urgency ICD Code: I16.0 - Hypertensive urgency (3) CHF (congestive heart failure) ICD Code: I50.9 - Heart failure, unspecified Status: Acute (4) Hypertension ICD Code: I10 - Hypertension Status: Chronic (5) History of coronary artery bypass surgery ICD Code: Z95.1 - History of coronary artery bypass surgery Status: Acute Assessment and Plan Assessment and plan 81-year-old male admitted secondary to CHF exacerbation with unstable angina Chest pain Coronary artery disease Evaluate for ACS Follow cardiac enzymes Follow EKGs Aspirin daily When necessary oxygen When necessary morphine for pain. When necessary nitroglycerin Follow on telemetry Cardiology consult CHF exacerbation Bovine heart valve Increased diuresis (Lasix IV 40mg AM, Lasix IV 20mg PM) Follow clinically Monitor renal function Monitor on telemetry Osteoarthritis Supportive care No change to baseline management DVT prophylaxis Cedrick Cummins MD Apr 10, 2017 18:07
[2017-04-10] MEDS: ENOXAPARIN SODIUM 40 MG/0.4 ML SYRINGE SQ SCH (18:13)
[2017-04-10] MEDS ORDERED: NITROGLYCERIN 0.4 MG SL 25 TABS/BTL SL PRN (18:15)
[2017-04-10] MEDS ORDERED: PILL SPLITTER OTHER PRN (18:30)
--- NOTE | 2017-04-10 18:45 | EKG ---
Date Performed: 04/10/2017 Time Performed: 14:51:30 PTAGE: 81 years EKG: SINUS TACHYCARDIA LEFT BUNDLE BRANCH BLOCK ABNORMAL ECG PREVIOUS TRACING : 03/12/2017 09.29 Compared to previous tracing, heart rate has increased. DOCTOR: Ernst Menon Interpretating Date/Time 04/10/2017 18:44:25
[2017-04-10] MEDS ORDERED: NON-FORMULARY DRUG (Glucosamine-Chondroitin 1 TAB) PO SCH (21:00)
[2017-04-10] MEDS: ATORVASTATIN 80 MG TAB PO SCH (21:41)
[2017-04-10] MEDS: predniSONE 5 MG TAB PO SCH (21:41)
[2017-04-10] MEDS: ASPIRIN 325 MG TAB PO SCH (21:42)
[2017-04-10] MEDS: SODIUM CHLORIDE 0.9% FLUSH 10 ML FLUSH IV FLUSH SCH (21:42)
[2017-04-10] MEDS: ACETAMINOPHEN 500 MG CPLT PO PRN (23:59)
[2017-04-11] VITALS: BP 147/90; PULSE 93; RESP 24; TEMP 98.5; O2SAT 94
[2017-04-11 04:00] VITALS: BP 123/77; PULSE 89; RESP 24; TEMP 97.8; O2SAT 91
[2017-04-11 06:36] LABS: AUTOMATED NEUTROPHIL # 5.1 TH/MM3 (1.8-7.7); BASOPHIL # 0.1 TH/MM3 (0-0.2); BASOPHIL % 0.9 % (0.0-2.0); EOSINOPHIL % 0.2 % (0.0-4.0); HEMATOCRIT 37.6 % (39.0-51.0); HEMO FLAGS DIFF FINAL; LYMPH % 17.2 % (9.0-44.0); LYMPHOCYTE # 1.3 TH/MM3 (1.0-4.8); MEAN CELL VOLUME 89.1 FL (80.0-100.0); MEAN CORPUSCULAR HEMOGLOBIN 29.8 PG (27.0-34.0); MEAN CORPUSCULAR HGB CONC 33.4 % (32.0-36.0); NEUT % 70.7 % (16.0-70.0); PLATELET COUNT 123 TH/MM3 (150-450); RED BLOOD COUNT 4.22 MIL/MM3 (4.50-5.90); RED CELL DISTRIBUTION WIDTH 14.8 % (11.6-17.2); WHITE BLOOD COUNT 7.3 TH/MM3 (4.0-11.0)
[2017-04-11 06:40] LABS: CHLORIDE 99 MEQ/L (98-107); SODIUM (NA) 136 MEQ/L (136-145)
[2017-04-11] MEDS: ISOSORBIDE MONONITRATE 30 MG TAB PO SCH (06:40)
[2017-04-11 06:44] LABS: ANION GAP 7 MEQ/L (5-15); BLOOD UREA NITROGEN 26 MG/DL (7-18)
[2017-04-11 06:47] LABS: ALT (GPT) 22 U/L (12-78); AST (GOT) 23 U/L (15-37); GLOMERULAR FILTRATION RATE 64 ML/MIN (>89)
[2017-04-11 06:49] LABS: TOTAL BILIRUBIN ADULT 0.9 MG/DL (0.2-1.0)
[2017-04-11 06:50] LABS: ALKALINE PHOSPHATASE 51 U/L (45-117)
--- NOTE | 2017-04-11 07:05 | EKG ---
Date Performed: 04/10/2017 Time Performed: 21:03:30 PTAGE: 81 years EKG: Sinus rhythm LEFT BUNDLE BRANCH BLOCK ABNORMAL ECG PREVIOUS TRACING : 04/10/2017 14.51 No significant change from previous tracing noted. DOCTOR: Ernst Menon Interpretating Date/Time 04/11/2017 07:04:14
--- NOTE | 2017-04-11 07:46 | MB ---
cc: ROBERTO WHITE MD, DO YOON GOLDSMITH, ALAN S. M.D. MILLER, DANIEL M.D. DATE OF CONSULTATION 04/11/2017 REASON FOR CONSULTATION Outside and hospital charts were reviewed. The patient is a 81-year-old white gentleman I am seeing for congestive heart failure and unstable angina. HISTORY The patient had prior bypass surgery in 2007. In 2014, he underwent catheterization which showed severe left main disease with occluded RCA, severe stenosis of the NORTH to the LAD and vein graft to the obtuse marginal and another one which was not seen. He subsequently underwent successful stenting of the left main and circumflex coronary arteries in January of 2015. In 2015, he underwent T[facility]R at [facility] for aortic valve replacement. Because of unstable angina, he underwent catheterization by Dr. Mike December of this year. The patient had severe left main and multivessel disease. The NORTH to the LAD was patent. The vein grafts were occluded along with occlusion of the right coronary artery. He was felt to high a risk for any intervention and at this point, the patient has no interest in any invasive or surgical procedures. He has been having worsening substernal angina with minimal or no exertion lasting perhaps up to an hour yesterday. He had a short episode during the night. These are nitrate responsive usually. He also notes mild to moderate dyspnea on exertion which is stable, but no pedal edema or other cardiac complaints. PAST MEDICAL HISTORY 1. Cardiac as above 2. Hypertension 3. Hyperlipidemia 4. Left bundle branch block 5. Cough from ETHEL inhibitors 6. Moderate bilateral carotid disease 7. Prostate cancer 8. Right rotator cuff 9. Spinal stenosis of the cervical area 10. Umbilical hernia repair 11. Appendectomy 12. Tonsillectomy SOCIAL HISTORY He is and a former smoker and has an occasional drink. ALLERGIES ETHEL INHIBITORS, HYDROCODONE, LATEX, NIACIN, SULFA, OXYCODONE. MEDICATIONS Medication list reviewed. PHYSICAL EXAM GENERAL: The patient is alert and oriented x3. VITAL SIGNS: Afebrile. Vital signs stable with mild hypertension. HEAD, EYES, EARS, NOSE, AND THROAT: There are no xanthelasma and oral pharyngeal mucosa normal. CHEST: Clear. CARDIAC: JVD normal. S1-S2 with a 1/6 early peaking systolic ejection murmur at the base. ABDOMEN: Benign. EXTREMITIES: Show no cyanosis, clubbing or edema. Pulses 1 to 2+ throughout without bruits. NEUROLOGIC: He is not ambulated. EKG shows left bundle branch block and is baseline. Chest x-ray shows mild cardiomegaly and pulmonary vascular redistribution. LABORATORY DATA CBC normal. PT/PTT normal. Potassium 4.2, creatinine 1.1, troponin negative. BNP elevated at 1432. PROBLEMS 1. Crescendo angina 2. Status post TAVR 3. Congestive heart failure 4. Hypertension 5. Hyperlipidemia 6. Carotid disease RECOMMENDATIONS 1. The patient does not want any invasive procedures or surgical procedures and understands there is little more that we can do. He is about maximized on nitrates and beta blockers. 2. Continue aspirin 3. We would like him on statins 4. Low cholesterol/salt diet. 5. I have discussed code status with the patient and he absolutely wants no resuscitation measures. 6. We also discussed hospice and the patient does have interest in this. I will leave this to the primary service as this may be helpful in terms of keeping him out of the hospital. 7. Endocarditis prophylaxis. 8. The patient absolutely wants to go home later today. He is interested in Hospice and follow up with Dr. White. I will be available if needed. I would maintain him on a higher dose of Lasix along with his home medications. ADDENDUM REVIEW OF SYSTEMS The patient has visual and hearing loss. He does get joint pain and mild balance issues. He has mild bruising, but no active bleeding. MD JOHN Stoddard/ABRAM /6:22 AM /8:33 AM
[2017-04-11] MEDS ORDERED: ATORVASTATIN 80 MG TAB PO SCH (09:00)
[2017-04-11] MEDS ORDERED: OMEGA PO SCH (09:00)
[2017-04-11] MEDS ORDERED: ATENOLOL/CHLORTHALIDONE 50/25 TAB PO SCH (09:00)
[2017-04-11] MEDS ORDERED: FATTY ACIDS PO SCH (09:00)
--- NOTE | 2017-04-11 09:04 | EKG ---
Date Performed: 04/11/2017 Time Performed: 03:13:33 PTAGE: 81 years EKG: Sinus rhythm LEFT BUNDLE BRANCH BLOCK ABNORMAL ECG PREVIOUS TRACING : 04/10/2017 21.03 No significant change from previous tracing noted. DOCTOR: Ernst Menon Interpretating Date/Time 04/11/2017 09:03:38
[2017-04-11] MEDS: ATENOLOL 50 MG TAB PO SCH (09:06)
[2017-04-11] MEDS: predniSONE 5 MG TAB PO SCH ×2 (09:06→20:48)
[2017-04-11] MEDS: carBAMazepine 200 MG TAB PO SCH (09:06)
[2017-04-11] MEDS: CHLORTHALIDONE 50 MG TAB PO SCH (09:06)
[2017-04-11] MEDS: PANTOPRAZOLE SOD 40 MG DELAYED RELEASE TAB PO SCH (09:06)
[2017-04-11] MEDS: CLOPIDOGREL 75 MG TAB PO SCH (09:06)
[2017-04-11] MEDS: POTASSIUM CHLORIDE 20 MEQ CONTROLLED RELEASE TAB PO SCH (09:07)
[2017-04-11] MEDS: SODIUM CHLORIDE 0.9% FLUSH 10 ML FLUSH IV FLUSH SCH ×2 (09:07→20:48)
[2017-04-11] MEDS: FUROSEMIDE 40 MG/4 ML VIAL IV PUSH SCH (09:07)
[2017-04-11] MEDS: ACETAMINOPHEN 500 MG CPLT PO PRN ×2 (11:26→20:52)
[2017-04-11 12:00] VITALS: BP_SYST 104; BP_SYST 97; BP_DIAS 64; BP_DIAS 69; PULSE 74; PULSE 77; RESP 20; TEMP 96; TEMP 97.7; O2SAT 100; O2SAT 92
[2017-04-11] MEDS ORDERED: FURO1TAB60 PO (13:05)
[2017-04-11] MEDS ORDERED: CARB200T PO (13:05)
[2017-04-11] MEDS ORDERED: FUROSEMIDE 20 MG/2 ML VIAL IV PUSH SCH (14:00)
[2017-04-11 16:00] VITALS: BP 13/78; PULSE 70; RESP 18; TEMP 96.2; O2SAT 94
[2017-04-11] MEDS: ENOXAPARIN SODIUM 40 MG/0.4 ML SYRINGE SQ SCH (18:00)
[2017-04-11 19:30] VITALS: PULSE 77
[2017-04-11] MEDS: ATORVASTATIN 80 MG TAB PO SCH (20:47)
[2017-04-11] MEDS: ASPIRIN 325 MG TAB PO SCH (20:48)
[2017-04-11] MEDS ORDERED: TEMAZEPAM 7.5 MG CAP PO PRN (21:15)
[2017-04-11 22:12] VITALS: BP 126/65; PULSE 71; RESP 18; TEMP 98; O2SAT 95
[2017-04-12 00:28] VITALS: BP 124/63; PULSE 68; RESP 16; TEMP 98.1; O2SAT 92
[2017-04-12 04:56] VITALS: BP 120/70; PULSE 63; RESP 16; TEMP 97.6; O2SAT 93
[2017-04-12] MEDS: ISOSORBIDE MONONITRATE 30 MG TAB PO SCH (06:19)
[2017-04-12 08:00] VITALS: BP 144/73; PULSE 61; RESP 16; TEMP 96.7; O2SAT 96
[2017-04-12] MEDS: CLOPIDOGREL 75 MG TAB PO SCH (09:12)
[2017-04-12] MEDS: PANTOPRAZOLE SOD 40 MG DELAYED RELEASE TAB PO SCH (09:13)
[2017-04-12] MEDS: POTASSIUM CHLORIDE 20 MEQ CONTROLLED RELEASE TAB PO SCH (09:13)
[2017-04-12] MEDS: carBAMazepine 200 MG TAB PO SCH (09:13)
[2017-04-12] MEDS: FUROSEMIDE 40 MG/4 ML VIAL IV PUSH SCH (09:14)
[2017-04-12] MEDS: CHLORTHALIDONE 50 MG TAB PO SCH (09:15)
[2017-04-12] MEDS: ATENOLOL 50 MG TAB PO SCH (09:16)
[2017-04-12] MEDS: predniSONE 5 MG TAB PO SCH (09:17)
[2017-04-12] MEDS: SODIUM CHLORIDE 0.9% FLUSH 10 ML FLUSH IV FLUSH SCH (09:23)
--- NOTE | 2017-04-12 10:48 | HHI.PR ---
Subjective Remarks Delayed note from 04/11 Patient seen and examined feeling better than before, he wanted to consult hospice which we ordered Appreciate cardiology consultation plan to switch to oral diuretic and possibly discharge home with hospice Objective Vitals Vital Signs Date Time Temp Pulse Resp B/P (MAP) Pulse Ox O2 Delivery O2 Flow Rate FiO2 04/12/17 08:00 96.7 61 16 144/73 (96) 96 04/12/17 04:56 97.6 63 16 120/70 (87) 93 04/12/17 00:28 98.1 68 16 124/63 (83) 92 04/11/17 22:12 98.0 71 18 126/65 (85) 95 04/11/17 19:30 77 04/11/17 16:00 96.2 70 18 13/78 (57) 94 04/11/17 12:00 96.0 77 20 104/69 (81) 92 04/11/17 12:00 97.7 74 20 97/64 (75) 100 I/O 04/11/17 04/11/17 04/11/17 04/12/17 04/12/17 04/12/17 07:00 15:00 23:00 07:00 15:00 23:00 Intake Total 480 ml 444 ml 480 ml Output Total 200 ml 600 ml 350 ml Balance 280 ml -156 ml 480 ml -350 ml Intake Oral 480 ml 444 ml 480 ml Output Urine Total 200 ml 600 ml 350 ml # Voids 2 # Bowel Movements 0 Result Diagram: 04/11/17 0513 04/11/17 05 Objective Remarks GENERAL: Well nourished/well developed patient in no apparent distress CARDIOVASCULAR: Regular rate and rhythm without murmurs, gallops or rubs. RESPIRATORY: Fairly okay breath sounds with slight diminish I basilar GASTROINTESTINAL: Abdomen soft, non-tender, nondistended. Normal active bowel sounds MUSCULOSKELETAL: Extremities without clubbing, cyanosis, but with trace pitting edema. NEURO: Alert & Oriented x4 to person, place, time, and situation. Moves all ext x4 A/P Problem List: (1) CHF exacerbation ICD Code: I50.9 - Heart failure, unspecified (2) Hypertensive urgency ICD Code: I16.0 - Hypertensive urgency (3) CHF (congestive heart failure) ICD Code: I50.9 - Heart failure, unspecified Status: Acute (4) Hypertension ICD Code: I10 - Hypertension Status: Chronic (5) History of coronary artery bypass surgery ICD Code: Z95.1 - History of coronary artery bypass surgery Status: Acute (6) Chest pain ICD Code: R07.9 - Chest pain, unspecified Status: Acute (7) Elevated brain natriuretic peptide (BNP) level ICD Code: R79.89 - Other specified abnormal findings of blood chemistry Status: Acute (8) Unstable angina ICD Code: I20.0 - Unstable angina Status: Acute (9) Hyperlipidemia ICD Code: E78.5 - Hyperlipidemia Status: Chronic Assessment and Plan Chest pain rule out ACS CHF exacerbation History of T aVR Osteoarthritis DVT prophylaxis Plan: Cardiac enzymes, EKG, aspirin, cardiology consultation, iv Lasix, daily monitor BMP and BNP. Monitor I's and O Patient requested DNR status and consult hospice Is cussed with hospice patient will be discharged home on his medical regimen to with hospice care Nazanin Mason MD Apr 12, 2017 10:48
--- NOTE | 2017-04-12 10:59 | HHI.DS ---
Discharge Summary Admission Date Apr 10, 2017 at 16:33 Discharge Date: Apr 12, 2017 Admitting Diagnosis CHF exacerbation (1) CHF exacerbation ICD Code: I50.9 - Heart failure, unspecified Diagnosis: Principal (2) Hypertensive urgency ICD Code: I16.0 - Hypertensive urgency Diagnosis: Principal (3) CHF (congestive heart failure) ICD Code: I50.9 - Heart failure, unspecified Diagnosis: Principal Status: Acute (4) Hypertension ICD Code: I10 - Hypertension Diagnosis: Principal Status: Chronic (5) History of coronary artery bypass surgery ICD Code: Z95.1 - History of coronary artery bypass surgery Diagnosis: Principal Status: Acute (6) Chest pain ICD Code: R07.9 - Chest pain, unspecified Diagnosis: Principal Status: Acute (7) Elevated brain natriuretic peptide (BNP) level ICD Code: R79.89 - Other specified abnormal findings of blood chemistry Diagnosis: Principal Status: Acute (8) Unstable angina ICD Code: I20.0 - Unstable angina Diagnosis: Principal Status: Acute (9) Hyperlipidemia ICD Code: E78.5 - Hyperlipidemia Diagnosis: Principal Status: Chronic Procedures None Brief History - From Admission Mr. Serna is an 81-year-old male. He came into the emergency department today because of dyspnea and chest pain. At baseline he has recurrent angina with exertion and dyspnea with exertion. Typically if he rests both of these go away quickly and typically he will use nitroglycerin on an as-needed basis and has resolution of his chest pain with this. Today he tried both of these and did not have relief so he came into the emergency department. He does not that over the past few days she's had increased dyspnea with exertion compared to his baseline. BNP is found to be elevated. CHF exacerbation is determined as an etiology. At baseline he has coronary artery disease, CHF, and an artificial bovine aortic valve. He has had three-vessel CABG and stents in the past. He follows with Dr. Mena as an outpatient. When seen in the ER he is not having chest pain. He still has some shortness of breath, especially when talking for long periods of time. No other complaints. No nausea or vomiting. No fevers or cough. CBC/BMP: 04/11/17 0513 04/11/17 0513 Significant Findings Laboratory Tests Test 04/10/17 15:00 04/10/17 21:05 04/11/17 03:00 04/11/17 05:13 Platelet Count 144 TH/MM3 (150-450) 123 TH/MM3 (150-450) Neutrophils (%) (Auto) 79.8 % (16.0-70.0) 70.7 % (16.0-70.0) Blood Urea Nitrogen 26 MG/DL (7-18) 26 MG/DL (7-18) Random Glucose 133 MG/DL (74-106) Aspartate Amino Transf (AST/SGOT) 12 U/L (15-37) Sodium Level 134 MEQ/L (136-145) Estimat Glomerular Filtration Rate 64 ML/MIN (>89) 64 ML/MIN (>89) Total Creatine Kinase 34 U/L (39-308) B-Type Natriuretic Peptide 1432 PG/ML (0-100) Red Blood Count 4.22 MIL/MM3 (4.50-5.90) Hemoglobin 12.6 GM/DL (13.0-17.0) Hematocrit 37.6 % (39.0-51.0) Monocytes (%) (Auto) 11.0 % (0.0-8.0) Test 04/11/17 21:05 04/12/17 03:00 Troponin I 3.76 NG/ML (0.02-0.05) 2.82 NG/ML (0.02-0.05) PE at Discharge GENERAL: Well nourished/well developed patient in no apparent distress CARDIOVASCULAR: Regular rate and rhythm without murmurs, gallops or rubs. RESPIRATORY: Fairly okay breath sounds with slight diminish I basilar GASTROINTESTINAL: Abdomen soft, non-tender, nondistended. Normal active bowel sounds MUSCULOSKELETAL: Extremities without clubbing, cyanosis, but with trace pitting edema. NEURO: Alert & Oriented x4 to person, place, time, and situation. Moves all ext x4 Hospital Course Patient admitted with Chest pain rule out ACS,CHF exacerbation,History of T aVR Usual protocol for ACS started, Cardiac enzymes, EKG, aspirin, cardiology consultation, iv Lasix, daily monitor BMP and BNP. Monitor I's and O Patient requested DNR status and consult hospice Is cussed with hospice patient will be discharged home on his medical regimen to with hospice care. [id number] encounter performed with the patient on discharge day, as well as physical exam, summary of hospitalization course and postdischarge plan has been D/W the patient. D/W nurse D/W case repairer. And hospice care agent Discharge medications reviewed and printed and signed, post discharge follow up visit with PCP and other specialist as well as Brief hospital course and discharge summary has been placed. Pt Condition on Discharge: Fair Discharge Disposition: Hospice/ Home Discharge Time: > 30 minutes Discharge Instructions DIET: Follow Instructions for: Heart Healthy Diet Activities you can perform: Weight Bearing as Carlos New Orders: BASIC METABOLIC PROF - 3-5 Days New Medications: Furosemide (Lasix) 40 Mg Tab 40 MG PO BID for dieures, #60 TAB 0 Refills Carbamazepine (Carbamazepine) 200 Mg Tab 200 MG PO DAILY for [place], #60 TAB Continued Medications: Acetaminophen (Tylenol) 325 Mg Tab 1000 MG PO TID PRN for PAIN SCALE 5 TO 10, TAB 0 Refills Amlodipine (Amlodipine) 10 Mg Tab 10 MG PO DAILY for Blood Pressure Management, #30 TAB 0 Refills Aspirin (Aspirin) 325 Mg Tab 325 MG PO HS, #30 TAB 0 Refills Atenolol & Chlorthalidone (Atenolol/Chlorthalidone 50-25 mg) 50 Mg-25 Mg Tab 1 TAB PO DAILY Clopidogrel (Clopidogrel) 75 Mg Tab 75 MG PO DAILY for Blood Clot Prevention, #30 TAB 0 Refills Glucosamine-Chondroitin (Glucosamine-Chondroitin) 500-400 Mg Tab 1 TAB PO BID for Herbal Supplements, TAB 0 Refills Isosorbide Mononitrate ER (Isosorbide Mononitrate ER) 30 Mg Rupesh 90 MG PO DAILY@07 for Prevent Heart Failure, #30 TAB 3 Refills Nitroglycerin SL (Nitrostat SL) 0.4 Mg Subl 0.4 MG SL DIRECTED PRN for CHEST PAIN, #100 TAB.SL 0 Refills 1 tablet under the tongue as needed for chest pain. Repeat every 5 minutes for a total of 3 DOSES or call 911 if NO relief. [place]-3 Fatty Acids (Fish Oil 1200 mg) 1 Cap Cap 1 TAB PO DAILY Oxymetazoline Nasal (Afrin Nasal [place]) 0.05% [place] 2-3 SPRAY EACH NARE Q12H PRN for NASAL CONGESTION, #1 BOTTLE 0 Refills Pantoprazole (Pantoprazole) 40 Mg Tab 40 MG PO DAILY for Reflux, #30 TAB 0 Refills Potassium Chloride ER (Potassium Chloride ER) 20 Meq Tab 20 MEQ PO DAILY for Electrolyte Replacement for 7 Days, #7 TAB 0 Refills Prednisone (Prednisone) 2.5 Mg Tab 2.5 MG PO BID, TAB 0 Refills Rosuvastatin (Rosuvastatin) 40 Mg Tab 40 MG PO DAILY for Cholesterol Management, #30 TAB 0 Refills Discontinued Medications: Carbamazepine (Carbamazepine) 200 Mg Tab 200 MG PO DAILY, #60 TAB 0 Refills Nazanin Mason MD Apr 12, 2017 10:59
== END 2017-04-12 13:39 | disposition home or self-care (01) ==
LOC: PHED 14:43 → PHEDA 16:33 → PH3B 17:35
PROVIDERS: ADMIT Hospitalist; ATTEND Hospitalist
DX: I11.0 Hypertensive heart disease with heart failure (principal); I50.9 Heart failure, unspecified; I16.0 Hypertensive urgency; R79.89 Other specified abnormal findings of blood chemistry; I25.110 Atherosclerotic heart disease of native coronary artery with unstable angina pectoris; E78.5 Hyperlipidemia, unspecified; J44.9 Chronic obstructive pulmonary disease, unspecified; I44.7 Left bundle-branch block, unspecified; R00.0 Tachycardia, unspecified; I25.2 Old myocardial infarction; K21.9 Gastro-esophageal reflux disease without esophagitis; M48.02 Spinal stenosis, cervical region; H91.90 Unspecified hearing loss, unspecified ear; M19.90 Unspecified osteoarthritis, unspecified site; Z87.891 Personal history of nicotine dependence; Z85.46 Personal history of malignant neoplasm of prostate; Z95.1 Presence of aortocoronary bypass graft; Z95.2 Presence of prosthetic heart valve; Z79.899 Other long term (current) drug therapy; Z79.82 Long term (current) use of aspirin; Z82.49 Family history of ischemic heart disease and other diseases of the circulatory system; Z66 Do not resuscitate
CPT/HCPCS: 71010; 80053; 82550; 83880; 84484; 85025; 85610; 85730; 93005; 96372; 96374; G0378; J1650; J1940; J7512